=== PATIENT | female | born 1940 | race Caucasian/White ===

== ENCOUNTER 2016-11-24 07:18 | Emergency (ER) | payer MEDICARE ==
[2016-11-24 07:27] VITALS: BP 149/84
--- NOTE | 2016-11-24 07:56 | UC ---
Respiratory Complaint HPI - HPI Summary HPI Summary: 76 yo female with cough x 1 week Initially not productive but over the past few days she has started to bring up phelgm no fever chills myalgias some runny nose - History of Current Complaint Chief Complaint: UCRespiratory Stated Complaint: COUGH CONGESTION Time Seen by Provider: 11/24/16 07:51 Hx Obtained From: Patient Onset/Duration: Gradual Onset Timing: Constant Severity Initially: Mild Severity Currently: Moderate Pain Intensity: 4 Pain Scale Used: 0-10 Numeric Character: Cough: Productive Aggravating Factors: Nothing Alleviating Factors: Nothing Associated Signs And Symptoms: Positive: Chills, Nasal Congestion - Allergies/Home Medications Allergies/Adverse Reactions: Allergies Allergy/AdvReac Type Severity Reaction Status Date / Time No Known Allergies Allergy Verified 07/20/14 06:48 Home Medications: Home Medications Apixaban* [Eliquis*] 5 mg PO 11/24/16 [History] Atenolol TAB* [Tenormin TAB* 50 MG] 50 mg PO DAILY 11/24/16 [History Confirmed 11/24/16] PMH/Surg Hx/FS Hx/Imm Hx Previously Healthy: Yes Endocrine History Of: Reports: Thyroid Disease - HYPOTHYROIDISM Cardiovascular History Of: Reports: Hypertension - WELL CONTROLLED WITH MEDICATION - Surgical History Surgical History: Yes Surgery Procedure, Year, and Place: 6 T&A. 2010 RIGHT CARPAL TUNNEL [facility]. 1960s & [place] [facility] [place] [facility] - Family History Known Family History: Positive: Hypertension - Social History Alcohol Use: None Alcohol Amount: 1-2 GLASSES/WEEK Substance Use Type: None Smoking Status (MU): Never Smoked Tobacco Have You Smoked in the Last Year: No Review of Systems Constitutional: Chills Skin: Negative Eyes: Negative ENT: Nasal Discharge Respiratory: Cough Cardiovascular: Negative Gastrointestinal: Negative Genitourinary: Negative Motor: Negative Neurovascular: Negative Musculoskeletal: Myalgia Neurological: Negative Psychological: Negative All Other Systems Reviewed And Are Negative: Yes Physical Exam Triage Information Reviewed: Yes Appearance: Well-Appearing, No Pain Distress, Well-Nourished Vital Signs: Initial Vital Signs Temp 97 F 11/24/16 07:24 Pulse 76 11/24/16 07:24 Resp 20 11/24/16 07:24 BP 149/84 11/24/16 07:24 Pulse Ox 100 11/24/16 07:24 Eyes: Positive: Conjunctiva Clear ENT: Positive: Hearing grossly normal. Negative: Nasal congestion, Nasal drainage, Trismus, Muffled/hoarse voice Neck: Positive: Supple, Nontender, No Lymphadenopathy Respiratory: Positive: Lungs clear, Normal breath sounds, No respiratory distress, No accessory muscle use Cardiovascular: Positive: RRR, No Murmur Musculoskeletal: Positive: ROM Intact, No Edema Neurological: Positive: Alert Psychological Exam: Normal Skin Exam: Normal UC Diagnostic Evaluation - Laboratory O2 Sat by Pulse Oximetry: 100 - normal/not hypoxic Respiratory Course/Dx - Differential Dx/Diagnosis Provider Diagnoses: acute bronchitis Discharge - Discharge Plan Condition: Stable Disposition: HOME Prescriptions: Azithromycin TAB* [Zithromax TAB*] 250 mg PO DAILY #6 tab Patient Education Materials: Acute Bronchitis (ED) Referrals: Jana Sinclair NP [Primary Care Provider] - 4 Days (if not better)
== END 2016-11-24 08:15 | disposition home or self-care (01) ==
LOC: UCEAST 07:18
DX: J20.9 Acute bronchitis, unspecified (principal); E03.9 Hypothyroidism, unspecified; I10 Essential (primary) hypertension
CPT/HCPCS: 99212; G0463

== ENCOUNTER 2016-11-27 18:13 | Emergency (ER) | payer MEDICARE ==
[2016-11-27 18:31] VITALS: BP 147/82
--- NOTE | 2016-11-27 19:20 | UC ---
Dizzy HPI HPI Summary: 76 yo female seen by me on 11/22 and rxed fro bronchitis her cough is much better the past day or two she has had progressively worsening weakness/dizziness no CP or abd pain or SOB no appetite taking fluids only - History Of Current Complaint Chief Complaint: UCGeneralIllness Stated Complaint: WEAK AND SHAKEY Time Seen by Provider: 11/27/16 18:45 Onset/Duration: Gradual Onset Timing: Constant Severity Initially: Moderate Severity Currently: Moderate Pain Intensity: 0 Pain Scale Used: 0-10 Numeric Character: Dizzy Aggravating Factor(s): Nothing Alleviating Factor(s): Nothing - Allergies/Home Medications Allergies/Adverse Reactions: Allergies Allergy/AdvReac Type Severity Reaction Status Date / Time No Known Allergies Allergy Verified 11/27/16 18:24 PMH/Surg Hx/FS Hx/Imm Hx Previously Healthy: Yes Endocrine History Of: Reports: Thyroid Disease - HYPOTHYROIDISM Cardiovascular History Of: Reports: Cardiac Disorders - A-Fib, Hypertension - WELL CONTROLLED WITH MEDICATION - Surgical History Surgical History: Yes Surgery Procedure, Year, and Place: 1945 T&A. 2010 RIGHT CARPAL TUNNEL [facility]. & RT KNEE SCOPE [facility]. 07/2013 Bilateral CATARACT [facility] - Family History Known Family History: Positive: Hypertension - Social History Alcohol Use: Rare Alcohol Amount: 1-2 GLASS wine q 6 months Substance Use Type: None Smoking Status (MU): Never Smoked Tobacco Have You Smoked in the Last Year: No - Immunization History Most Recent Influenza Vaccination: 06/2016 Most Recent Pneumonia Vaccination: 2014 Review of Systems Constitutional: Fatigue Skin: Negative Eyes: Negative ENT: Negative Respiratory: Negative Cardiovascular: Negative Gastrointestinal: Negative Genitourinary: Negative Motor: Negative Neurovascular: Negative Musculoskeletal: Negative Neurological: Negative Psychological: Negative All Other Systems Reviewed And Are Negative: Yes Physical Exam Triage Information Reviewed: Yes Appearance: Well-Appearing, No Pain Distress, Well-Nourished Vital Signs: Initial Vital Signs Temp 97.5 F 11/27/16 18:26 Pulse 76 11/27/16 18:26 Resp 16 11/27/16 18:26 BP 147/82 11/27/16 18:26 Pulse Ox 100 11/27/16 18:26 Vital Signs Reviewed: Yes Eyes: Positive: Conjunctiva Clear ENT: Positive: Hearing grossly normal. Negative: Pharyngeal erythema, Nasal congestion, Nasal drainage, Trismus, Muffled/hoarse voice Neck: Positive: Supple, Nontender, No Lymphadenopathy Respiratory: Positive: Lungs clear, Normal breath sounds, No respiratory distress Cardiovascular: Positive: No Murmur. Negative: RRR Abdomen Description: Positive: Nontender, No Organomegaly, Soft. Negative: CVA Tenderness (R), CVA Tenderness (L) Musculoskeletal: Positive: Strength Intact, ROM Intact, No Edema Neurological Exam: Normal Neurological: Positive: Alert Psychological Exam: Normal Skin Exam: Normal Dizzy Course/Dx - Differential Dx/Diagnosis Provider Diagnoses: UTI. Dizziness/fatigue/anorexia Discharge - Discharge Plan Condition: Stable Disposition: HOME Prescriptions: Sulfamethox/Trimethoprim DS* [Bactrim DS 800/160 TAB*] 1 tab PO BID #14 tab Patient Education Materials: Urinary Tract Infection in Women (ED), Dizziness ( ED) Referrals: Jana Sinclair NP [Primary Care Provider] - If Needed Additional Instructions: recheck for new or worsening symptoms or if not better in 2-3 days a urine culture is pending
--- NOTE | 2016-11-27 19:46 | RAD ---
Indication: Cough, weakness. 2 views of the chest including dual energy PA views demonstrate no mediastinal shift. Heart is of normal size and configuration. Lungs are clear. Lung awad appear hyperinflated. IMPRESSION: No active cardiopulmonary disease is noted.
[2016-11-27] MEDS ORDERED: Sulfamethox/Trimethoprim DS 800/160* TAB PO ONE (19:57)
== END 2016-11-27 20:09 | disposition home or self-care (01) ==
LOC: UCEAST 18:13
DX: N39.0 Urinary tract infection, site not specified (principal); R42 Dizziness and giddiness; R53.83 Other fatigue; R63.0 Anorexia
CPT/HCPCS: 71020; 81002; 87086; 93005; 99212; A9270-GY; G0463

== ENCOUNTER 2016-11-28 09:01 | Inpatient (IN) | payer MEDICARE ==
--- NOTE | 2016-11-28 10:00 | ED ---
Complex/Multi-Sys Presentation - HPI Summary HPI Summary: Patient presents feeling "blah". She was treated by her PCP for bronchitis a week ago with a Z-eric and then went to [facility] for fatigue yesterday, where she was treated for a UTI. She was started on Bactrim. She is not eating well and has not been drinking either. She had 3 episodes of diarrhea 6 days ago and has had chills without a measured fever. She has lost 9 lbs over the last week. She denies symptoms of CP, SOB, abdominal pain, COVARRUBIAS, fever, swelling or N/T. No N/V/ D. - History Of Current Complaint Chief Complaint: EDWeakness Time Seen by Provider: 11/28/16 09:16 Hx Obtained From: Patient, Family/Data Entry Assistant Onset/Duration: Gradual Onset Timing: Constant Severity Currently: Severe Severity Initially: Mild Associated Signs And Symptoms: Positive: Weakness, Diarrhea, Decreased Oral Intake - Allergies/Home Medications Allergies/Adverse Reactions: Allergies Allergy/AdvReac Type Severity Reaction Status Date / Time No Known Allergies Allergy Verified 11/27/16 18:24 PMH/Surg Hx/FS Hx/Imm Hx Endocrine/Hematology History: Reports: Hx Thyroid Disease - HYPOTHYROIDISM Denies: Hx Sickle Cell Disease Cardiovascular History: Reports: Hx Hypertension - WELL CONTROLLED WITH MEDICATION, Other Cardiovascular Problems/Disorders - HIGH CHOLESTEROL UNDER CONTROL WITH MEDICATION Respiratory History: Denies: Other Respiratory Problems/Disorders GI History: Denies: Other GI Disorders History: Denies: Other Problems/Disorders Musculoskeletal History: Denies: Other Musculoskeletal History Sensory History: Reports: Hx Cataracts - BILATERAL, Hx Contacts or Glasses - GLASSES Denies: Hx Glaucoma, Hx Hearing Aid Opthamlomology History: Reports: Hx Cataracts - BILATERAL, Hx Contacts or Glasses - GLASSES Denies: Hx Glaucoma Neurological History: Denies: Other Neuro Impairments/Disorders - Surgical History Surgery Procedure, Year, and Place: 1945 T&A. 2010 RIGHT CARPAL TUNNEL [facility]. & RT KNEE SCOPE [facility]. 07/2013 Bilateral CATARACT [facility] Hx Anesthesia Reactions: No Infectious Disease History: No Infectious Disease History: Denies: Traveled Outside the [place] in Last 30 Days - Family History Known Family History: Positive: Hypertension - Social History Occupation: Retired Lives: With Family Alcohol Use: Rare Alcohol Amount: 1-2 GLASS wine q 6 months Substance Use Type: Reports: None Hx Tobacco Use: No Smoking Status (MU): Never Smoked Tobacco Have You Smoked in the Last Year: No Review of Systems Positive: Chills, Fatigue. Negative: Fever Positive: Sore Throat. Negative: Ear Ache Negative: Chest Pain Negative: Shortness Of Breath Positive: Diarrhea - 6 days ago x 3. Negative: Abdominal Pain, Vomiting Negative: Myalgia, Edema Negative: Weakness, Paresthesia, Numbness All Other Systems Reviewed And Are Negative: Yes Physical Exam Triage Information Reviewed: Yes Vital Signs On Initial Exam: Initial Vitals Temp Pulse Resp BP Pulse Ox 98.9 F 78 18 125/69 99 11/28/16 09:03 11/28/16 09:03 11/28/16 09:03 11/28/16 09:03 11/28/16 09:03 Vital Signs Reviewed: Yes Appearance: Positive: Well-Appearing, No Pain Distress, Well-Nourished Skin: Positive: Warm, Skin Color Reflects Adequate Perfusion, Dry, Soft Head/Face: Positive: Normal Head/Face Inspection Eyes: Positive: EOMI, GOLDY, Conjunctiva Clear ENT: Positive: Hearing grossly normal Neck: Positive: Supple, Nontender, No Lymphadenopathy Respiratory/Lung Sounds: Positive: Clear to Auscultation, Breath Sounds Present Cardiovascular: Positive: RRR Abdomen Description: Positive: Nontender, Soft. Negative: CVA Tenderness (R), CVA Tenderness (L), Distended, Guarding Bowel Sounds: Positive: Present Musculoskeletal: Negative: Edema Left, Edema Right Neurological: Positive: Sensory/Motor Intact, Alert, Oriented to Person Place, Time, NV Bundle Intact Distally Psychiatric: Positive: Affect/Mood Appropriate AVPU Assessment: Alert Diagnostics - Vital Signs Vital Signs Temp Pulse Resp BP Pulse Ox 11/28/16 09:03 98.9 F 78 18 125/69 99 - Laboratory Result Diagrams: 11/28/16 10:05 11/28/16 10:05 Lab Statement: Any lab studies that have been ordered have been reviewed, and results considered in the medical decision making process. Complex Multi-Symp Course/Dx - Diagnoses Differential Diagnoses/HQI/PQRI: Aspiration, Closed Cranial Trauma, CVA, Metabolic Abnormality Provider Diagnoses: Hypokalemia, Hyponatremia - Physician Notifications Discussed Care Of Patient With: Dr. Lewis, emergency department attending: Dr. Mendes, [facility]. Instructed by Provider To: Admit As Inpatient Discharge - Discharge Plan Condition: Stable Disposition: ADMITTED TO [facility]
[2016-11-28] MEDS: NS 0.9% 1000 ML* 2,000 ML IV ONE ×2 (10:12→10:53)
[2016-11-28 10:27] LABS: Hematocrit 37 % (35-47); Hemoglobin 13.8 g/dl (12.0-16.0); Mean Corpuscular HGB Conc 37 g/dl (31-36); Mean Corpuscular Hemoglobin 33 pg (27-31); Mean Corpuscular Volume 89 fL (80-97); Mean Platelet Volume 8 um3 (7.4-10.4); Red Blood Count 4.18 10^6/ul (4.0-5.4); Red Cell Distribution Width 13 % (10.5-15); White Blood Count 4.1 10^3/ul (3.5-10.8)
[2016-11-28 10:31] LABS: Comments Flag Yes
[2016-11-28 10:43] LABS: BUN/Creatinine Ratio 10.7 (8-20); Calcium 8.8 mg/dL (8.6-10.3); EGFR African American 97.1 (>60); EGFR Non-African American 75.5 (>60); Globulin 2.5 g/dL (2-4); Magnesium 1.2 mg/dL (1.9-2.7); Total Bilirubin 1.8 mg/dL (0.2-1.0); Total Protein 6.5 g/dL (6.4-8.9)
[2016-11-28 10:45] LABS: Troponin I 0.01 ng/mL (<0.04)
[2016-11-28 10:50] LABS: Potassium 2.3 mmol/L (3.5-5.0)
[2016-11-28] MEDS ORDERED: KCL 20 MEQ/100 ML IVPREMIX* 20 MEQ/100 ML BAG IV ONE (10:53)
[2016-11-28] MEDS ORDERED: Magnesium Sulfate 2 GM IV* 2 GM/50 ML BAG IVPB ONE ×2 (10:54→13:01)
[2016-11-28] MEDS ORDERED: Potassium Chlor TAB* 20 MEQ TAB.ER PO ONE (10:54)
[2016-11-28 11:03] LABS: TSH (Thyroid Stimulating Horm) 1.71 mcIU/mL (0.34-5.60)
[2016-11-28] MEDS ORDERED: Magnesium Sulfate 2 GM IV* 0 GM/0 ML BAG ONE (11:22)
[2016-11-28] MEDS ORDERED: Sodium Chloride 3% HYPERTONIC* 500 ML IVPB ONE (11:48)
[2016-11-28 12:15] LABS: Urine Bacteria 1+ (Absent); Urine Bilirubin Negative (Negative); Urine Glucose Negative (Negative); Urine Nitrite Negative (Negative)
[2016-11-28 12:47] LABS: BUN/Creatinine Ratio 11.1 (8-20); Calcium 7.8 mg/dL (8.6-10.3); EGFR African American 118.8 (>60); EGFR Non-African American 92.4 (>60)
[2016-11-28] MEDS ORDERED: NS 0.9% 1000 ML* 1,000 ML IV SCH (13:00)
--- NOTE | 2016-11-28 14:43 | HP ---
HOSPITAL MEDICINE HISTORY AND PHYSICAL: DATE OF ADMISSION: 11/28/16 PRIMARY CARE PHYSICIAN: Jana Sinclair NP ATTENDING PHYSICIAN: Dr. Reggie Mendes* (dictation provided by Keira Alvarado NP) . CHIEF COMPLAINT: Weakness and generalized malaise. HISTORY OF PRESENT ILLNESS: Ms. Madrid is a 76-year-old female with past medical history of hypertension, hyperlipidemia and hypothyroidism, who presents today to the hospital with concern for 2 weeks of malaise and weakness. The patient states that she began to feel unwell about 10 days ago with symptoms that she felt were a cold. She felt cough, chills, and she felt weak. She was seen at [facility] on 11/24/16, at which time she was diagnosed with bronchitis and started on azithromycin. The patient states she completed 4 doses of azithromycin and then returned to [facility] on 11/27/16 when she continued to feel unwell. At that time she continued to have a cough, but her main symptoms were of just feeling "yucky." UA was not able to be obtained due to patient's very poor urine output, but it was suspected that perhaps she had a urinary tract infection and she was started on Bactrim. I will note the patient denies any symptoms of dysuria or frequency. The patient took one dose of Bactrim. Her daughter came to see her this morning and felt that she looked quite poorly and therefore decided to bring her to the emergency room for evaluation. Again, Ms. Madrid's primary symptom is just feeling weak and "washed out." She has no further cough. She states that throughout this illness, she has had a very poor appetite and her daughter notes that she has lost 9 pounds. In the emergency room, Ms. Madrid was found to have hyponatremia with a sodium of 109, her potassium is 2.3, her magnesium is 1.2, her urinalysis shows no evidence of infection. She has no leukocytosis. Her vital signs are stable. Based on Ms. Madrid's presentation with hyponatremia, as well as hypokalemia and magnesemia, suspected related to her acute viral illness, dehydration, hydrochlorothiazide use, and perhaps Bactrim, Hospital Medicine was called regarding admission. PAST MEDICAL HISTORY: 1. Hyperlipidemia. 2. Hypertension. 3. Hypothyroidism. 4. Cataracts. 5. AFib. 6. Varicose vein surgery. 7. Arthroscopy of the right knee. MEDICATIONS: Hydrochlorothiazide 25 mg p.o. daily, lisinopril 15 mg p.o. daily , simvastatin 10 mg p.o. at bedtime, Bactrim 800/160 mg 1 tablet p.o. b.i.d., apixaban 5 mg p.o. b.i.d., atenolol 50 mg p.o. daily, levothyroxine 100 mcg p.o. daily. ALLERGIES: No known drug allergies. FAMILY HISTORY: The patient reports that her father related to a heart attack and mom related to a stroke. Healthcare proxy is the daughter. SOCIAL HISTORY: No alcohol, tobacco or drug use. She lives alone with support from the daughter. REVIEW OF SYSTEMS: A 14-point review of systems was completed with Ms. Madrid and all those not mentioned above are negative. PHYSICAL EXAMINATION VITAL SIGNS: Temperature 98.9, heart rate 78, respiratory rate 18, O2 saturation 99% on room air, blood pressure 125/69. GENERAL: Ms. Madrid is sitting in the bed, she is in no acute distress. NEURO: She is alert and oriented x3. She moves all extremities equally. There is no facial symmetry or focal weakness. Extraocular movements are intact. HEART: S1, S2. No murmur, rub or gallop, and regular. LUNGS: Clear to auscultation bilaterally with no accessory muscle use and good aeration. ABDOMEN: Soft and nontender with bowel sounds positive x4. EXTREMITIES: No cyanosis or edema. SKIN: Intact. LABORATORY DATA: WBC 4.1, hemoglobin 13.8, hematocrit 37, platelet count 243. Sodium 109 at 10:05, on repeat check at 12:09, sodium is now 111. Potassium at 10:05 was 2.3, and now is 3.0. Chloride is 75 at 10 o'clock, BUN 8, creatinine 0.75. Glucose 129, magnesium 1.2, TSH 1.71. WBC 4.1, hemoglobin 13.8, hematocrit 37, platelet count 243. Urine shows no evidence of infection, but does show trace ketones. Group A strep is negative. EKG shows a sinus rhythm with PVCs. ASSESSMENT: Ms. Madrid is a 76-year-old female with a past medical history of hypertension and hyperlipidemia, who presents today to the hospital with generalized fatigue and malaise, has been found to have hyponatremia, hypokalemia, and hypomagnesemia. Based on her presentation with concern for acute viral illness approximately 10 days ago, as well as her use of hydrochlorothiazide and Bactrim, I suspect that she has hypervolemic hyponatremia. Plans are for admission to the hospital for the followin. Hypovolemic hyponatremia. At this point, I do suspect that she is hypovolemic based on her illness, poor appetite, and weight loss, as well as her use of hydrochlorothiazide. The patient has received normal saline in the emergency room at almost 2 L at this point. Her sodium has risen from 109 to 111. Plan to continue with gentle IV fluids with normal saline at 100 mL per hour and recheck in a couple of hours as I would like to watch closely and avoid any rapid correction of the sodium. 2. Hypokalemia, patient has been repleted and the potassium is 3.0. 3. Hypomagnesemia. The patient will receive additional 2 g of magnesium in addition to the 2 g she has received in the ED, and I will check the labs in the morning. 4. Hypertension, plan to hold hydrochlorothiazide and lisinopril but continue with atenolol. 5. AFib. The patient will continue with her Eliquis and atenolol. 6. Hypothyroidism, continue levothyroxine. 7. Hyperlipidemia, continue atorvastatin, a substitute for simvastatin. 8. Code status is DNR and a MOLST form was completed with the patient. 9. Disposition to the medical floor with close observation of sodium through the evening. TIME SPENT: Approximately 60 minutes were spent on the admission of this patient, more than half the time was spent with the patient at the bedside reviewing the events leading up to this hospitalization, performing the physical examination, and reviewing the plan of care. KEIRA ALVARADO NP CC: Jana Sinclair NP* [id number]/[facility] #: [id number] MTDCorine
[2016-11-28 19:29] LABS: BUN/Creatinine Ratio 9.9 (8-20); Calcium 8.3 mg/dL (8.6-10.3); EGFR African American 103.5 (>60); EGFR Non-African American 80.5 (>60)
[2016-11-28 19:36] LABS: Potassium 2.6 mmol/L (3.5-5.0)
[2016-11-28] MEDS: Apixaban* 5 MG TAB PO SCH (20:53)
[2016-11-28] MEDS: KCL 10 MEQ/50 ML IVPREMIX* 10 MEQ/50 ML BAG IV SCH ×3 (20:53→23:32)
[2016-11-28] MEDS: Atorvastatin* 10 MG TAB PO SCH (20:53)
[2016-11-28] MEDS: NS 0.9% 1000 ML* 1,000 ML IV SCH ×2 (20:54→23:36)
[2016-11-29 00:41] LABS: BUN/Creatinine Ratio 9.2 (8-20); Calcium 8.1 mg/dL (8.6-10.3); EGFR African American 95.7 (>60); EGFR Non-African American 74.4 (>60); Potassium 3.4 mmol/L (3.5-5.0)
[2016-11-29] MEDS: NS 0.9% 1000 ML* 1,000 ML IV SCH ×3 (01:25→18:24)
[2016-11-29] MEDS: Levothyroxine TAB* 100 MCG TAB PO SCH (05:54)
[2016-11-29 07:08] LABS: BUN/Creatinine Ratio 8.5 (8-20); Calcium 8.5 mg/dL (8.6-10.3); EGFR African American 87.6 (>60); EGFR Non-African American 68.1 (>60); Potassium 2.8 mmol/L (3.5-5.0)
[2016-11-29] MEDS: Apixaban* 5 MG TAB PO SCH ×2 (10:00→21:43)
[2016-11-29] MEDS: Atenolol TAB* 50 MG PO SCH (10:01)
[2016-11-29] MEDS: Lisinopril TAB* 10 MG PO SCH ×3 (10:51→21:43)
[2016-11-29 12:05] LABS: BUN/Creatinine Ratio 10.3 (8-20); Calcium 8.4 mg/dL (8.6-10.3); EGFR African American 92.8 (>60); EGFR Non-African American 72.2 (>60)
[2016-11-29] MEDS ORDERED: Potassium Chlor TAB* 20 MEQ TAB.ER PO ONE (12:30)
--- NOTE | 2016-11-29 14:53 | PN ---
Subjective Date of Service: 11/29/16 Interval History: Ms. Madrid states that she feels much better. She notes, "what a difference 24 hours can make!" She denies headache, chest pain, SOB, nausea, or abdominal pain. She is tolerating oral intake well. Objective Active Medications: Apixaban (Eliquis*) 5 mg PO BID [facility] Atenolol (Tenormin Tab*) 50 mg PO DAILY [facility] Atorvastatin Calcium (Lipitor*) 5 mg PO BEDTIME [facility] Sodium Chloride (Ns 0.9% 1000 Ml*) 1,000 mls @ 125 mls/hr IV PER RATE [facility] Levothyroxine Sodium (Synthroid Tab*) 100 mcg PO DAILY@0600 [facility] Lisinopril (Prinivil Tab*) 10 mg PO TID [facility] Vital Signs 11/28/16 11/28/16 11/28/16 15:57 16:03 19:19 Temperature 98.2 F Pulse Rate 88 Respiratory 16 16 16 Rate Blood Pressure 117/75 (mmHg) O2 Sat by Pulse 98 Oximetry 11/28/16 11/28/16 11/29/16 20:00 23:37 04:10 Temperature 98.2 F 97.4 F Pulse Rate 64 67 Respiratory 16 16 16 Rate Blood Pressure 126/74 102/64 (mmHg) O2 Sat by Pulse 98 100 Oximetry 11/29/16 11/29/16 11/29/16 08:00 09:41 11:37 Temperature 98.1 F 97.8 F Pulse Rate 89 65 Respiratory 16 16 14 Rate Blood Pressure 115/64 128/78 (mmHg) O2 Sat by Pulse 99 99 Oximetry Oxygen Devices in Use Now: None Appearance: Female sitting up in bed in NAD Respiratory: Symmetrical Chest Expansion and Respiratory Effort, Clear to Auscultation Cardiovascular: NL Sounds; No Murmurs; No JVD, No Edema Abdominal: NL Sounds; No Tenderness; No Distention Extremities: No Edema Skin: No Rash or Ulcers Neurological: Alert and Oriented x 3, NL Muscle Strength and Tone Nutrition: Taking PO's Result Diagrams: 11/28/16 10:05 11/29/16 11:34 Assess/Plan/Problems-Billing Assessment: Ms. Madrid is a 76 yo female with a PMH of hypertension and afib who was admitted on 11/28/16 with hyponatremia, hypokalemia, and hypomagnesemia in setting of recent viral illness secondary to dehydration and HCTZ usage. - Patient Problems (1) Hyponatremia Comment: Na 109 -> 121 with NS since admission. Continue at 125 ml/hr. Recheck this evening and in AM. Suspect secondary to dehydration in setting of acute viral illness, poor oral intake, and HCTZ use. Stop hctz, viral illness resolved. (2) Hypokalemia Comment: K 2.2 -> 3.0 since admission. Continue IV supplementation. (3) Hypomagnesemia Comment: Repleted. (4) Hypertension Comment: BP well controlled. Continue increased dose lisinopril with atenolol. Hold hctz. (5) Afib Comment: Rate controlled. Continue atenolol and eliquis. (6) DNR (do not resuscitate) (7) DVT prophylaxis Comment: Eliquis Status and Disposition: Inpatient with expected LOS > 2 days. Home when medically stable.
[2016-11-29] MEDS: KCL 20 MEQ/100 ML IVPREMIX* 20 MEQ/100 ML BAG IV SCH ×2 (15:39→18:04)
[2016-11-29] MEDS: Atorvastatin* 10 MG TAB PO SCH (21:44)
[2016-11-29 23:14] LABS: BUN/Creatinine Ratio 13.1 (8-20); Calcium 8.4 mg/dL (8.6-10.3); EGFR African American 85.2 (>60); EGFR Non-African American 66.3 (>60); Potassium 4.2 mmol/L (3.5-5.0)
[2016-11-30] MEDS: NS 0.9% 1000 ML* 1,000 ML IV SCH ×3 (00:40→18:23)
[2016-11-30] MEDS: Levothyroxine TAB* 100 MCG TAB PO SCH (06:00)
[2016-11-30 07:13] LABS: BUN/Creatinine Ratio 12.5 (8-20); Calcium 8.3 mg/dL (8.6-10.3); EGFR African American 101.8 (>60); EGFR Non-African American 79.2 (>60); Potassium 3.6 mmol/L (3.5-5.0)
[2016-11-30] MEDS: Atenolol TAB* 50 MG PO SCH (10:22)
[2016-11-30] MEDS: Lisinopril TAB* 10 MG PO SCH ×2 (10:22→21:11)
[2016-11-30] MEDS: Apixaban* 5 MG TAB PO SCH ×2 (10:22→21:12)
--- NOTE | 2016-11-30 10:55 | PN ---
Subjective Date of Service: 11/30/16 Interval History: This is a 76 yo female with HTN, HLD, hypothyroidism, and afib who presented with generalized malaise. She had severe electrolyte abnormalities at admission with Na 109, K 2.2, Mg 1.2. She had a recent viral illness and continued thiazide diuretic use. She has been repleted with IV NS and IV Mg/K. She states that she is overall feeling well this am. Her appetite has returned to normal. Denies abdominal pain, n/v. No headache Objective Active Medications: Apixaban (Eliquis*) 5 mg PO BID [facility] Last Admin: 11/30/16 10:22 Dose: 5 mg Atenolol (Tenormin Tab*) 50 mg PO DAILY [facility] Last Admin: 11/30/16 10:22 Dose: 50 mg Atorvastatin Calcium (Lipitor*) 5 mg PO BEDTIME [facility] Last Admin: 11/29/16 21:44 Dose: 5 mg Sodium Chloride (Ns 0.9% 1000 Ml*) 1,000 mls @ 125 mls/hr IV PER RATE [facility] Last Admin: 11/30/16 09:38 Dose: 125 mls/hr Levothyroxine Sodium (Synthroid Tab*) 100 mcg PO DAILY@0600 [facility] Last Admin: 11/30/16 06:00 Dose: 100 mcg Lisinopril (Prinivil Tab*) 10 mg PO TID [facility] Last Admin: 11/30/16 10:22 Dose: 10 mg Vital Signs: Temp Pulse Resp BP Pulse Ox 97.9 F 66 16 138/71 100 11/30/16 08:38 11/30/16 08:38 11/30/16 08:38 11/30/16 08:38 11/30/16 08:38 Oxygen Devices in Use Now: None Appearance: Well appearing female who appears younger than stated age in NAD. Accompanied by family Neck: NL Appearance and Movements; NL JVP Respiratory: Symmetrical Chest Expansion and Respiratory Effort Cardiovascular: NL Sounds; No Murmurs; No JVD, RRR Abdominal: NL Sounds; No Tenderness; No Distention Extremities: No Edema Skin: No Rash or Ulcers Neurological: Alert and Oriented x 3 Result Diagrams: 11/28/16 10:05 11/30/16 06:10 Assess/Plan/Problems-Billing Assessment: Ms. Madrid is a 76 yo female with a PMH of hypertension and afib who was admitted on 11/28/16 with hyponatremia, hypokalemia, and hypomagnesemia in setting of recent viral illness secondary to dehydration and HCTZ usage. - Patient Problems (1) Hyponatremia Comment: Na has improved to 126 mmol/L today, now asymptomatic Suspect secondary to dehydration in setting of acute viral illness, poor oral intake, and HCTZ use. HCTZ held Plan to repeat BMP later this afternoon and again tomorrow am. (2) Hypokalemia Comment: Resolved Repleted with IV K (3) Hypomagnesemia Comment: Repleted. (4) Afib Comment: Rate controlled. Continue atenolol and eliquis. (5) Hypertension Comment: BP well controlled. Cont lisinopril and atenolol HCTZ held (6) DNR (do not resuscitate) Status and Disposition: Inpatient with expected LOS > 2 days. Anticipate possible discharge tomorrow, would like Na >130 mmol/L
[2016-11-30 12:14] LABS: Magnesium 1.8 mg/dL (1.9-2.7)
[2016-11-30 16:03] LABS: BUN/Creatinine Ratio 12.3 (8-20); Calcium 8.6 mg/dL (8.6-10.3); EGFR African American 100.2 (>60); EGFR Non-African American 77.9 (>60); Potassium 4.1 mmol/L (3.5-5.0)
[2016-11-30] MEDS: Atorvastatin* 10 MG TAB PO SCH (21:11)
[2016-12-01] MEDS: Levothyroxine TAB* 100 MCG TAB PO SCH (05:31)
[2016-12-01 08:32] LABS: Calcium 8.5 mg/dL (8.6-10.3); EGFR African American 100.2 (>60); EGFR Non-African American 77.9 (>60); Magnesium 1.7 mg/dL (1.9-2.7); Potassium 3.4 mmol/L (3.5-5.0)
[2016-12-01] MEDS ORDERED: Potassium Chlor TAB* 20 MEQ TAB.ER PO ONE (08:43)
[2016-12-01 09:00] VITALS: BP 138/60
[2016-12-01] MEDS ORDERED: Magnesium Sulf 4 GM/100 ML IV* 4,000 MG/100 ML BAG IVPB ONE (09:00)
[2016-12-01] MEDS: Lisinopril TAB* 10 MG PO SCH (09:35)
[2016-12-01] MEDS: Atenolol TAB* 50 MG PO SCH (09:36)
[2016-12-01] MEDS: Apixaban* 5 MG TAB PO SCH (09:36)
--- NOTE | 2016-12-01 12:54 | DS ---
DISCHARGE SUMMARY: DATE OF ADMISSION: 11/28/16 DATE OF DISCHARGE: 12/01/16 PRIMARY CARE PROVIDER: PEPE Ho DISCHARGING PROVIDER: CAITIE Lawton SUPERVISING PHYSICIAN: Afua Gómez MD* (DICTATED BY CAITIE LAWTON) PRIMARY DISCHARGE DIAGNOSES: 1. Hyponatremia secondary to hypovolemia and thiazide diuretic use. 2. Hypokalemia. 3. Hypomagnesemia. 4. Acute viral illness, resolved. SECONDARY DISCHARGE DIAGNOSES: 1. Hypertension. 2. Hyperlipidemia. 3. Hypothyroidism. 4. Atrial fibrillation. DISCHARGE MEDICATIONS: 1. Eliquis 5 mg p.o. b.i.d. 2. Atenolol 50 mg p.o. daily. 3. Levothyroxine 100 mcg p.o. daily. 4. Lisinopril 15 mg p.o. twice daily. 5. Simvastatin 10 mg p.o. at bedtime. MEDICATION CHANGES: 1. Discontinue Bactrim. 2. Discontinue hydrochlorothiazide. HOSPITAL IMAGING: EKG shows significant amount of artifact what appears to be atrial fibrillation that is rate controlled with occasional PVCs and no obvious ischemic changes. HOSPITAL COURSE: This is a very pleasant 76-year-old female with a history of chronic atrial fibrillation, anticoagulated with Eliquis as well as hypertension , hyperlipidemia, and hypothyroidism who had been experiencing complaints of weakness and malaise for about 2 weeks prior to her hospital admission. She was treated for presumed bronchitis with azithromycin, but noted really no improvement in her symptoms. She was subsequently treated for presumed urinary tract infection and started on Bactrim. She took just 1 dose of Bactrim prior to her hospitalization. Her symptoms of weakness and malaise continued to progress and she presented to the emergency department for further evaluation. At the time of admission, her sodium was 109 mmol/L, potassium of 2.3 mmol/L, BUN of 8, creatinine 0.75, and magnesium of 1.2. The patient had been continuing her thiazide diuretic throughout her acute illness and her oral intake had been extremely poor for several days prior. The patient was treated for presumed hypovolemic hyponatremia with IV normal saline. Potassium and magnesium were replaced IV as well. The patient's sodium slowly improved. She had no seizure activity and her complaints of malaise and poor appetite improved during her hospital stay. At the time of discharge, the patient's sodium is 131 mmol/L, potassium 3.4, and magnesium 1.7. The patient is going to receive an additional 40 mEq of oral potassium and 4 g of IV magnesium prior to discharge. She states that her energy has improved to back to baseline. She denies any headache or visual changes. No abdominal pain, nausea, or vomiting. DISPOSITION: The patient is being discharged to home. She has a followup appointment with her primary care provider for of this week, which she is encouraged to keep. Recommend repeating basic metabolic panel on Friday prior to her appointment. Her hydrochlorothiazide has been discontinued at this time and can be resumed if appear to be clinically necessary as long as her electrolyte disturbances have resolved completely at the time of repeat evaluation later this week. The patient does not require any additional doses of Bactrim. No signs of acute bacterial infection identified during her hospital stay. CAITIE LAWTON CC: PEPE Ho* [id number]/[facility] #: [id number] TANYA
== END 2016-12-01 13:50 | disposition home or self-care (01) | DRG 641 ==
LOC: ED 09:01 → MED 12:56
PROVIDERS: ADMIT Internal Medicine; ATTEND Internal Medicine
DX: E87.1 Hypo-osmolality and hyponatremia (principal); E86.0 Dehydration; I48.91 Unspecified atrial fibrillation; E83.42 Hypomagnesemia; I10 Essential (primary) hypertension; E03.9 Hypothyroidism, unspecified; E86.1 Hypovolemia; E87.6 Hypokalemia; B34.9 Viral infection, unspecified; E78.5 Hyperlipidemia, unspecified; Z79.01 Long term (current) use of anticoagulants; Z79.899 Other long term (current) drug therapy; Z82.3 Family history of stroke; Z82.49 Family history of ischemic heart disease and other diseases of the circulatory system
CPT/HCPCS: 36415; 71020; 80048; 80053; 81002; 81003; 81015; 83605; 83735; 84443; 84484; 85025; 87086; 87502; 87651; 93005; 99212; A9270-GY; G0463; J3475; J3480

== ENCOUNTER 2016-12-09 11:36 | Day surgery (SDC) | payer MEDICARE ==
[2016-12-09] MEDS ORDERED: Lidocain 1% EPI 1:100,000 * 30 ML MDV ONE (12:32)
[2016-12-09 14:21] VITALS: BP 152/71
--- NOTE | 2016-12-10 04:48 | OP ---
DATE OF OPERATION: 12/09/16 [facility] DATE OF : 44 SURGEON: Reggie Morris MD LITHOGRAPHIC PROOFER: CAITIE Gaston ANESTHESIOLOGIST: None. ANESTHESIA: Local only with 1% lidocaine with epinephrine. PRE-OP DIAGNOSES: 1. Left trigger thumb. 2. Left carpal tunnel syndrome. POST-OP DIAGNOSES: 1. Left trigger thumb. 2. Left carpal tunnel syndrome. OPERATIVE PROCEDURE: 1. Left thumb A1 leslee release. 2. Left open carpal tunnel release. INDICATIONS: Leticia is a 76-year-old woman in whom I had given a steroid injection for the left trigger thumb. It went away initially, but is now coming back and clicking and catching. She also has carpal tunnel syndrome. We talked about risks and benefits and she elected to proceed. ESTIMATED BLOOD LOSS: 10 mL. COMPLICATIONS: None. FINDINGS: As expected. DESCRIPTION OF PROCEDURE: Leticia was seen in the preoperative holding area and the correct side and site were marked. We had a time-out and then I infiltrated the operative area with 1% lidocaine with epinephrine and some bicarbonate. I waited for about 20 minutes and then came back to the operating room where the arm was prepped and dapped in the usual fashion and a time-out was performed. I began by making a transverse laceration to the volar flexion crease over the metacarpophalangeal joint of the left thumb. Dissection was carried down bluntly with a tenotomy scissors. The ulnar and radial digital nerves were identified and retracted with the Ragnell's. I then went ahead and with a tendon sheath completed cleaned out other soft tissue, I longitudinally incised it with a tenotomy scissors. The release was carried out proximally and distally with the tenotomy scissors under direct visualization to avoid any injury to the nerves. I was very satisfied with the release. I had to flex and extend the thumb down and she could not induce any triggering. I then irrigated out the wound and closed the wound with some 5-0 nylon suture. I then turned my attention to the carpal tunnel where a 2 to 3 cm longitudinal incision was made in the standard location for an open carpal tunnel release. Dissection was carried down through this skin, subcutaneous tissue, and palmar fascia with a knife. I then used the tenotomy scissors to create subcutaneous tunnel just ulnar to the palmaris longus tendon prior to opening the transverse carpal ligament. I then released the transverse carpal ligament just off the radial aspect of the hook of the hamate. The release was carried out from distal to proximal. When I got to the level of the volar flexion crease, I inserted the Zoe retractor and retracted the skin and subcutaneous tissue superficially. Under direct visualization, I then released the rest of the transversal carpal ligament and the distal antebrachial fascia to the level of about 4 to 5 cm proximal to the volar wrist flexion crease. I then checked the release proximally and distally. Everything looked good. I then irrigated the wound and closed the skin with some 4- 0 nylon suture. Wounds were then dressed with Xeroform, 4x4, sterile Webril, and an Greg wrap. She was then taken to the recovery room in stable condition. [id number]/[facility] #: [id number] TANYA
== END 2016-12-09 14:12 | disposition home or self-care (01) ==
LOC: OREAST 11:36
PROVIDERS: ATTEND Orthopaedic Surgery Hand Surgery
DX: M65.312 Trigger thumb, left thumb (principal); G56.02 Carpal tunnel syndrome, left upper limb

== ENCOUNTER 2017-10-28 06:44 | Emergency (ER) | payer MEDICARE ==
[2017-10-28 07:47] LABS: ABS Basophils 0 10^3/ul (0-0.2); ABS Eosinophils 0 10^3/ul (0-0.6); ABS Lymphocytes 0.9 10^3/ul (1.0-4.8); ABS Monocytes 0.3 10^3/ul (0-0.8); ABS Neutrophils 3.6 10^3/ul (1.5-7.7); ABS Nucleated RBC 0 10^3/ul; Eosinophil % 0.3 % (0-6); Hematocrit 40 % (35-47); Lymphocyte % 18.5 % (25-47); Mean Corpuscular HGB Conc 35 g/dl (31-36); Mean Corpuscular Hemoglobin 33 pg (27-31); Mean Corpuscular Volume 94 fL (80-97); Mean Platelet Volume 7 um3 (7.4-10.4); Nucleated Red Blood Cells % 0.1; Platelet Count 253 10^3/ul (150-450); Red Blood Count 4.22 10^6/ul (4.0-5.4); Red Cell Distribution Width 15 % (10.5-15); White Blood Count 4.9 10^3/ul (3.5-10.8)
[2017-10-28 08:01] LABS: EGFR Non-African American 69.9 (>60)
--- NOTE | 2017-10-28 08:13 | RAD ---
INDICATION: Weakness. COMPARISON: Comparison is made with prior chest x-ray study from November 27, 2016. TECHNIQUE: A portable view of the chest was obtained. FINDINGS: Cardiac and mediastinal contours appear to be within normal limits. The lungs are underinflated and clear. No pleural effusion is seen. IMPRESSION: NO EVIDENCE FOR ACUTE DISEASE.
[2017-10-28] MEDS ORDERED: NS 0.9% 500 ML* 500 ML IV ONE (08:43)
[2017-10-28 09:59] VITALS: BP 139/63
--- NOTE | 2017-10-29 07:57 | ED ---
Feliberto Kuo Angela, scribed for Alejandro Hill MD on 10/28/17 at 0724 . Complex/Multi-Sys Presentation - HPI Summary HPI Summary: This pt is a 77 y/o female [facility] c/o weakness and feeling shaky upon waking up this morning. Pt additionally notes her knees "felt rubbery." Pt reports that she went to her crop and soil scientist yesterday for a pre-op appointment. She states her crop and soil scientist changed her Atenolol dosage from 50 to 100 mg. Pt started this new dose yesterday afternoon. She notes her symptoms began upon waking up this morning. She denies chest pain, SOB, dizziness, nausea, vomiting , diarrhea. - History Of Current Complaint Chief Complaint: EDGeneral Time Seen by Provider: 10/28/17 07:12 Hx Obtained From: Patient Onset/Duration: Lasting Hours, Still Present Timing: Hours Severity Initially: Moderate Aggravating Factor(s): possible increase of atenolol dosage Alleviating Factor(s): nothing Associated Signs And Symptoms: Positive: Weakness - generalized, Other - POS: feeling shaky, "knees felt rubbery". Negative: Dizziness, SOB, Chest Pain, Nausea, Vomiting, Diarrhea, Fever - Allergies/Home Medications Allergies/Adverse Reactions: Allergies Allergy/AdvReac Type Severity Reaction Status Date / Time Hydrochlorothiazide AdvReac See Comment Verified 10/28/17 06:50 Home Medications: Home Medications Levothyroxine TAB* [Synthroid TAB*] 50 mcg PO .MONTHURS 10/28/17 [History Confirmed 10/28/17] amLODIPine TAB* [Norvasc 5 mg TAB*] 5 mg PO DAILY 10/28/17 [History Confirmed ] PMH/Surg Hx/FS Hx/Imm Hx Endocrine/Hematology History: Reports: Hx Thyroid Disease - HYPOTHYROIDISM Denies: Hx Sickle Cell Disease Cardiovascular History: Reports: Hx Atrial Fibrillation, Hx Hypertension - WELL CONTROLLED WITH MEDICATION, Other Cardiovascular Problems/Disorders - HIGH CHOLESTEROL UNDER CONTROL WITH MEDICATION Respiratory History: Denies: Other Respiratory Problems/Disorders GI History: Denies: Other GI Disorders History: Denies: Other Problems/Disorders Musculoskeletal History: Denies: Other Musculoskeletal History Sensory History: Reports: Hx Cataracts - BILATERAL, Hx Contacts or Glasses Denies: Hx Glaucoma, Hx Hearing Aid Opthamlomology History: Reports: Hx Cataracts - BILATERAL, Hx Contacts or Glasses Denies: Hx Glaucoma Neurological History: Denies: Other Neuro Impairments/Disorders - Surgical History Surgery Procedure, Year, and Place: 1946 T&A. 2011 RIGHT CARPAL TUNNEL [facility]. & 1970s RT KNEE SCOPE [facility]. 07/2013 Bilateral CATARACT [facility] Hx Anesthesia Reactions: No Infectious Disease History: No Infectious Disease History: Denies: Traveled Outside the [place] in Last 30 Days - Family History Known Family History: Positive: Hypertension - Social History Alcohol Use: None Alcohol Amount: 1-2 GLASS wine q 6 months Substance Use Type: Reports: None Hx Tobacco Use: No Smoking Status (MU): Never Smoked Tobacco Have You Smoked in the Last Year: No Review of Systems Negative: Fever, Chills Negative: Chest Pain Negative: Shortness Of Breath Negative: Vomiting, Diarrhea, Nausea Musculoskeletal: Other - "knees felt rubbery" Neurological: Other - POS: feeling shaky. NEG: dizziness Positive: Weakness - generalized All Other Systems Reviewed And Are Negative: Yes Physical Exam - Summary Physical Exam Summary: VITAL SIGNS: Reviewed. GENERAL: Patient is a well-developed and nourished female who is lying comfortable in the stretcher. Patient is not in any acute respiratory distress. HEAD AND FACE: No signs of trauma. No ecchymosis, hematomas or skull depressions. No sinus tenderness. EYES: PERRLA, EOMI x 2, No injected conjunctiva, no nystagmus. EARS: Hearing grossly intact. Ear canals and tympanic membranes are within normal limits. MOUTH: Oropharynx within normal limits. NECK: Supple, trachea is midline, no adenopathy, no JVD, no carotid bruit, no c- spine tenderness, neck with full ROM. CHEST: Symmetric, no tenderness at palpation LUNGS: Clear to auscultation bilaterally. No wheezing or crackles. CVS: Irregular rate and rhythm, S1 and S2 present, no murmurs or gallops appreciated. ABDOMEN: Soft, non-tender. No signs of distention. No rebound no guarding, and no masses palpated. Bowel sounds are normal. EXTREMITIES: FROM in all major joints, no edema, no cyanosis or clubbing. NEURO: Alert and oriented x 3. No acute neurological deficits. Speech is normal and follows commands. SKIN: Dry and warm Triage Information Reviewed: Yes Vital Signs On Initial Exam: Initial Vitals Temp Pulse Resp BP Pulse Ox 98.1 F 81 16 170/77 100 10/28/17 06:45 10/28/17 06:45 10/28/17 06:45 10/28/17 06:45 10/28/17 06:45 Vital Signs Reviewed: Yes Diagnostics - Vital Signs Vital Signs Temp Pulse Resp BP Pulse Ox 10/28/17 06:45 98.1 F 81 16 170/77 100 - Laboratory Lab Results: Lab Results 10/28/17 10/28/17 Range/Units 07:35 07:35 WBC 4.9 (3.5-10.8) 10^3/ul RBC 4.22 (4.0-5.4) 10^6/ul Hgb 14.0 (12.0-16.0) g/dl Hct 40 (35-47) % MCV 94 (80-97) fL MCH 33 H (27-31) pg MCHC 35 (31-36) g/dl RDW 15 (10.5-15) % Plt Count 253 (150-450) 10^3/ul MPV 7 L (7.4-10.4) um3 Neut % (Auto) 75.1 (38-83) % Lymph % (Auto) 18.5 L (25-47) % Crook % (Auto) 5.4 (1-9) % Eos % (Auto) 0.3 (0-6) % Baso % (Auto) 0.7 (0-2) % Absolute Neuts (auto) 3.6 (1.5-7.7) 10^3/ul Absolute Lymphs (auto) 0.9 L (1.0-4.8) 10^3/ul Absolute Monos (auto) 0.3 (0-0.8) 10^3/ul Absolute Eos (auto) 0 (0-0.6) 10^3/ul Absolute Basos (auto) 0 (0-0.2) 10^3/ul Absolute Nucleated RBC 0 10^3/ul Nucleated RBC % 0.1 Sodium 127 L (133-145) mmol/L Potassium 3.7 (3.5-5.0) mmol/L Chloride 95 L (101-111) mmol/L Carbon Dioxide 26 (22-32) mmol/L Anion Gap 6 (2-11) mmol/L BUN 9 (6-24) mg/dL Creatinine 0.80 (0.51-0.95) mg/dL Est GFR ( Amer) 89.9 (>60) Est GFR (Non-Af Amer) 69.9 (>60) BUN/Creatinine Ratio 11.3 (8-20) Glucose 116 H (70-100) mg/dL Calcium 9.8 (8.6-10.3) mg/dL Magnesium 2.0 (1.9-2.7) mg/dL Total Bilirubin 0.90 (0.2-1.0) mg/dL AST 21 (13-39) U/L ALT 10 (7-52) U/L Alkaline Phosphatase 90 (34-104) U/L Troponin I 0.00 (<0.04) ng/mL C-Reactive Protein < 1.00 (< 5.00) mg/L Total Protein 7.2 (6.4-8.9) g/dL Albumin 4.4 (3.2-5.2) g/dL Globulin 2.8 (2-4) g/dL Albumin/Globulin Ratio 1.6 (1-3) TSH 4.18 (0.34-5.60) mcIU/mL Result Diagrams: 10/28/17 07:35 10/28/17 07:35 Lab Statement: Any lab studies that have been ordered have been reviewed, and results considered in the medical decision making process. - Radiology Chest XR Xray Interpretation: No Acute Changes - IMPRESSION: No evidence for acute disease. Dr. Hill has reviewed this radiology report. Radiology Interpretation Completed By: Radiologist - EKG 07:39 Cardiac Rate: NL EKG Rhythm: Atrial Fibrillation - at 86 bpm EKG Comparison: No Significant Change - no change from prior EKG done on . Complex Multi-Symp Course/Dx Course Of Treatment: This pt is a 77 y/o female presenting [place] [facility] c/o weakness and feeling shaky upon waking up this morning. Pt additionally notes her knees "felt rubbery." Pt reports that she went to her crop and soil scientist yesterday for a pre-op appointment. She states her crop and soil scientist changed her Atenolol dosage from 50 to 100 mg. Pt started this new dose yesterday afternoon. She notes her symptoms began upon waking up this morning. She denies chest pain, SOB, dizziness, nausea, vomiting, diarrhea. Test results without any significant abnormalities except for sodium of 127, glucose of 116. The pt had a little bit of orthostatic hypotension. The pt was hydrated and her symptoms resolved. Since the pt does not have any symptoms and is ambulating without dizziness and chest pain, she will be discharged to home with follow up from her PCP. Pt is hemodynamically stable, alert and oriented x3. - Diagnoses Differential Diagnoses/HQI/PQRI: Cardiac Ischemia, Metabolic Abnormality Provider Diagnoses: Weakness, Orthostatic hypotension Discharge - Discharge Plan Condition: Stable Disposition: HOME Patient Education Materials: Weakness (ED) Referrals: Jana Sinclair NP [Primary Care Provider] - Additional Instructions: Please follow up with your primary care provider. RETURN TO THE ED FOR ANY WORSENING SYMPTOMS. The documentation as recorded by the Feliberto diehl Angela accurately reflects the service I personally performed and the decisions made by Sergio brown Walter, MD.
== END 2017-10-28 10:00 | disposition home or self-care (01) ==
LOC: ED 06:44
DX: I95.1 Orthostatic hypotension (principal); R53.1 Weakness; Z86.79 Personal history of other diseases of the circulatory system
CPT/HCPCS: 36415; 71045; 80053; 83735; 84443; 84484; 85025; 86140; 93005; 99283

== ENCOUNTER 2017-10-29 08:19 | Emergency (ER) | payer MEDICARE ==
[2017-10-29] MEDS ORDERED: NS 0.9% 1000 ML* 1,000 ML IV ONE (09:23)
[2017-10-29 09:55] LABS: ABS Basophils 0 10^3/ul (0-0.2); ABS Eosinophils 0 10^3/ul (0-0.6); ABS Lymphocytes 1.2 10^3/ul (1.0-4.8); ABS Monocytes 0.4 10^3/ul (0-0.8); ABS Neutrophils 4.6 10^3/ul (1.5-7.7); ABS Nucleated RBC 0 10^3/ul; Eosinophil % 0.2 % (0-6); Hematocrit 40 % (35-47); Hemoglobin 14.1 g/dl (12.0-16.0); Lymphocyte % 18.8 % (25-47); Mean Corpuscular HGB Conc 35 g/dl (31-36); Mean Corpuscular Hemoglobin 33 pg (27-31); Mean Corpuscular Volume 93 fL (80-97); Mean Platelet Volume 7 um3 (7.4-10.4); Nucleated Red Blood Cells % 0; Platelet Count 283 10^3/ul (150-450); Red Cell Distribution Width 15 % (10.5-15); White Blood Count 6.3 10^3/ul (3.5-10.8)
[2017-10-29 10:44] LABS: Urine Appearance Clear; Urine Blood 2+ (Negative); Urine Color Colorless; Urine Ketones Negative (Negative); Urine Protein Negative (Negative); Urine Specific Gravity 1.002 (1.010-1.030); Urine Urobilinogen Negative (Negative)
[2017-10-29 11:16] LABS: EGFR Non-African American 80.3 (>60)
[2017-10-29 12:12] VITALS: BP 139/68
--- NOTE | 2017-11-09 14:16 | ED ---
Shannan Kuo Jason, scribed for Jose Luis Branch MD on 10/29/17 at 1119 . Complex/Multi-Sys Presentation - HPI Summary HPI Summary: This patient is a 77 year old F presenting to [facility] with a chief complaint of fatigue since 3 day ago. The patient states that she feels fatigued and weak. She includes that two days ago she started a higher dose of atenolol at 100 mg a day. She was seen in the ED yesterday and was verbally told she was dehydrated ; she was ordered to receive IV fluids but did not receive them as a nurse did not fulfill the order. The patient states that her symptoms are not positional. The patient rates the pain 0/10 in severity. Symptoms aggravated by exertion. Symptoms alleviated by nothing. Patient denies chest pain, chest tightness, pressure or heaviness, SOB, N/V/D, and speech difficulties. Additionally, the Pt reports that she had a tick within the past few months that was embedded in her eyelid and subsequently removed with tweezers. She states that she did not receive treatment and did not experience joint issues or rashes. - History Of Current Complaint Chief Complaint: EDWeakness Time Seen by Provider: 10/29/17 08:36 Hx Obtained From: Patient Onset/Duration: Gradual Onset, Lasting Days - Since 3 days ago, Still Present Aggravating Factor(s): exertion Associated Signs And Symptoms: Positive: Weakness, Other - fatigue. Patient denies chest pain, chest tightness, pressure or heaviness, SOB, N/V/D, and speech difficulties. - Allergies/Home Medications Allergies/Adverse Reactions: Allergies Allergy/AdvReac Type Severity Reaction Status Date / Time MS Hydrochlorothiazide AdvReac See Comment Verified 11/02/17 15:17 [Hydrochlorothiazide] PMH/Surg Hx/FS Hx/Imm Hx Previously Healthy: No Endocrine/Hematology History: Reports: Hx Thyroid Disease - HYPOTHYROIDISM Denies: Hx Sickle Cell Disease Cardiovascular History: Reports: Hx Atrial Fibrillation, Hx Hypertension - WELL CONTROLLED WITH MEDICATION, Other Cardiovascular Problems/Disorders - HIGH CHOLESTEROL UNDER CONTROL WITH MEDICATION Respiratory History: Denies: Other Respiratory Problems/Disorders GI History: Denies: Other GI Disorders History: Denies: Other Problems/Disorders Musculoskeletal History: Denies: Other Musculoskeletal History Sensory History: Reports: Hx Cataracts - BILATERAL, Hx Contacts or Glasses Denies: Hx Glaucoma, Hx Hearing Aid Opthamlomology History: Reports: Hx Cataracts - BILATERAL, Hx Contacts or Glasses Denies: Hx Glaucoma Neurological History: Denies: Other Neuro Impairments/Disorders - Surgical History Surgery Procedure, Year, and Place: 1946 T&A. 2010 RIGHT CARPAL TUNNEL [facility]. & 1970s RT KNEE SCOPE [facility]. 07/2013 Bilateral CATARACT [facility] Hx Anesthesia Reactions: No Infectious Disease History: No Infectious Disease History: Denies: Traveled Outside the [place] in Last 30 Days - Family History Known Family History: Positive: Hypertension Negative: Blood Disorder - Social History Occupation: Retired Alcohol Use: None Alcohol Amount: 1-2 GLASS wine q 6 months Substance Use Type: Reports: None Hx Tobacco Use: No Smoking Status (MU): Never Smoked Tobacco Have You Smoked in the Last Year: No Review of Systems Positive: Fatigue. Negative: Fever Positive: Weakness All Other Systems Reviewed And Are Negative: Yes Physical Exam - Summary Physical Exam Summary: Constitutional: Well-developed, Well-nourished, Alert. (-) Distressed Skin: Warm, Dry HENT: Normocephalic; Atraumatic Eyes: Conjunctiva normal Neck: Musculoskeletal ROM normal neck. (-) JVD, (-) Stridor, (-) Tracheal deviation Cardio: Rhythm regular, rate normal, Heart sounds normal; Intact distal pulses; The pedal pulses are 2+ and symmetric. Radial pulses are 2+ and symmetric. (-) Murmur Pulmonary/Chest wall: Effort normal. (-) Respiratory distress, (-) Wheezes, (-) Rales Abd: Soft, (-) Tenderness, (-) Distension, (-) Guarding, (-) Rebound Musculoskeletal: (-) Edema Lymph: (-) Cervical adenopathy Neuro: Alert, Oriented x3 Psych: Mood and affect Normal Triage Information Reviewed: Yes Vital Signs On Initial Exam: Initial Vitals Temp Pulse Resp BP Pulse Ox 98.3 F 45 16 166/81 100 10/29/17 08:26 10/29/17 08:26 10/29/17 08:26 10/29/17 08:26 10/29/17 08:26 Vital Signs Reviewed: Yes Diagnostics - Vital Signs Vital Signs Temp Pulse Resp BP Pulse Ox 10/29/17 08:46 79 13 99 10/29/17 08:26 98.3 F 45 16 166/81 100 - Laboratory Lab Results: Lab Results 10/29/17 10/29/17 10/29/17 Range/Units 09:33 09:33 09:33 WBC 6.3 (3.5-10.8) 10^3/ul RBC 4.30 (4.0-5.4) 10^6/ul Hgb 14.1 (12.0-16.0) g/dl Hct 40 (35-47) % MCV 93 (80-97) fL MCH 33 H (27-31) pg MCHC 35 (31-36) g/dl RDW 15 (10.5-15) % Plt Count 283 (150-450) 10^3/ul MPV 7 L (7.4-10.4) um3 Neut % (Auto) 74.0 (38-83) % Lymph % (Auto) 18.8 L (25-47) % [place] % (Auto) 6.5 (1-9) % Eos % (Auto) 0.2 (0-6) % Baso % (Auto) 0.5 (0-2) % Absolute Neuts (auto) 4.6 (1.5-7.7) 10^3/ul Absolute Lymphs (auto) 1.2 (1.0-4.8) 10^3/ul Absolute Monos (auto) 0.4 (0-0.8) 10^3/ul Absolute Eos (auto) 0 (0-0.6) 10^3/ul Absolute Basos (auto) 0 (0-0.2) 10^3/ul Absolute Nucleated RBC 0 10^3/ul Nucleated RBC % 0 Sodium 124 L (133-145) mmol/L Potassium 3.9 (3.5-5.0) mmol/L Chloride 91 L (101-111) mmol/L Carbon Dioxide 26 (22-32) mmol/L Anion Gap 7 (2-11) mmol/L BUN 6 (6-24) mg/dL Creatinine 0.71 (0.51-0.95) mg/dL Est GFR ( Amer) 103.2 (>60) Est GFR (Non-Af Amer) 80.3 (>60) BUN/Creatinine Ratio 8.5 (8-20) Glucose 110 H (70-100) mg/dL Lactic Acid 1.5 (0.5-2.0) mmol/L Calcium 9.7 (8.6-10.3) mg/dL Magnesium 1.9 (1.9-2.7) mg/dL Total Bilirubin 0.90 (0.2-1.0) mg/dL AST 27 (13-39) U/L ALT 16 (7-52) U/L Alkaline Phosphatase 82 (34-104) U/L Troponin I 0.00 (<0.04) ng/mL Total Protein 6.9 (6.4-8.9) g/dL Albumin 4.3 (3.2-5.2) g/dL Globulin 2.6 (2-4) g/dL Albumin/Globulin Ratio 1.7 (1-3) TSH 3.67 (0.34-5.60) mcIU/mL Urine Color Urine Appearance Urine pH (5-9) Ur Specific [place] (1.010-1.030) Urine Protein (Negative) Urine Ketones (Negative) Urine Blood (Negative) Urine Nitrate (Negative) Urine Bilirubin (Negative) Urine Urobilinogen (Negative) Ur Leukocyte Esterase (Negative) Urine WBC (Auto) (Absent) Urine RBC (Auto) (Absent) Urine Bacteria (Absent) Urine Glucose (Negative) Lyme Disease Serology (Negative) 10/29/17 10/29/17 Range/Units 09:33 09:52 WBC (3.5-10.8) 10^3/ul RBC (4.0-5.4) 10^6/ul Hgb (12.0-16.0) g/dl Hct (35-47) % MCV (80-97) fL MCH (27-31) pg MCHC (31-36) g/dl RDW (10.5-15) % Plt Count (150-450) 10^3/ul MPV (7.4-10.4) um3 Neut % (Auto) (38-83) % Lymph % (Auto) (25-47) % [place] % (Auto) (1-9) % Eos % (Auto) (0-6) % Baso % (Auto) (0-2) % Absolute Neuts (auto) (1.5-7.7) 10^3/ul Absolute Lymphs (auto) (1.0-4.8) 10^3/ul Absolute Monos (auto) (0-0.8) 10^3/ul Absolute Eos (auto) (0-0.6) 10^3/ul Absolute Basos (auto) (0-0.2) 10^3/ul Absolute Nucleated RBC 10^3/ul Nucleated RBC % Sodium (133-145) mmol/L Potassium (3.5-5.0) mmol/L Chloride (101-111) mmol/L Carbon Dioxide (22-32) mmol/L Anion Gap (2-11) mmol/L BUN (6-24) mg/dL Creatinine (0.51-0.95) mg/dL Est GFR ( Amer) (>60) Est GFR (Non-Af Amer) (>60) BUN/Creatinine Ratio (8-20) Glucose (70-100) mg/dL Lactic Acid (0.5-2.0) mmol/L Calcium (8.6-10.3) mg/dL Magnesium (1.9-2.7) mg/dL Total Bilirubin (0.2-1.0) mg/dL AST (13-39) U/L ALT (7-52) U/L Alkaline Phosphatase (34-104) U/L Troponin I (<0.04) ng/mL Total Protein (6.4-8.9) g/dL Albumin (3.2-5.2) g/dL Globulin (2-4) g/dL Albumin/Globulin Ratio (1-3) TSH (0.34-5.60) mcIU/mL Urine Color Colorless Urine Appearance Clear Urine pH 8.0 (5-9) Ur Specific [place] 1.002 L (1.010-1.030) Urine Protein Negative (Negative) Urine Ketones Negative (Negative) Urine Blood 2+ H (Negative) Urine Nitrate Negative (Negative) Urine Bilirubin Negative (Negative) Urine Urobilinogen Negative (Negative) Ur Leukocyte Esterase Negative (Negative) Urine WBC (Auto) Absent (Absent) Urine RBC (Auto) Trace(0-2/hpf) (Absent) Urine Bacteria Absent (Absent) Urine Glucose Negative (Negative) Lyme Disease Serology Negative (Negative) Result Diagrams: 10/29/17 09:33 10/29/17 09:33 Lab Statement: Any lab studies that have been ordered have been reviewed, and results considered in the medical decision making process. - EKG 0932 Cardiac Rate: NL EKG Rhythm: Sinus Rhythm - [address] Segment: Normal Ectopy: PVCs - occasional Complex Multi-Symp Course/Dx Course Of Treatment: This patient is a 77 year old F presenting to [facility] with a chief complaint of fatigue since 3 day ago. The patient states that she feels fatigued and weak. She includes that two days ago she started a higher dose of atenolol at 100 mg a day. She was seen in the ED yesterday and was verbally told she was dehydrated; she was ordered to receive IV fluids but did not receive them as a nurse did not fulfill the order. The patient states that her symptoms are not positional. The patient rates the pain 0/10 in severity. Symptoms aggravated by exertion. Symptoms alleviated by nothing. Patient denies chest pain, chest tightness, pressure or heaviness, SOB, N/V/D, and speech difficulties. Additionally, the Pt reports that she had a tick within the past few months that was embedded in her eyelid and subsequently removed with tweezers. She states that she did not receive treatment and did not experience joint issues or rashes. Assessment/Plan: In the ED course the patient was given IV fluids and lab workup. An EKG reveals shows Normal Sinus Rhythm at 98 bpm with occasional PVCs. At this time there is no suspicion for stroke or OR. - Diagnoses Differential Diagnoses/HQI/PQRI: Urinary Tract Infection, Other - Viral Illness , Medication adverse effect from increased beta vikas. Provider Diagnoses: Dehydration, Generalized weakness Discharge - Discharge Plan Condition: Fair Disposition: OTHER Discharge Disposition Comment: Patient is signed out to Dr. Valdovinos, awaiting lab results. Patient Education Materials: Dehydration (ED) Referrals: Jana Sinclair NP [Primary Care Provider] - 1 Day Additional Instructions: RETURN TO THE EMERGENCY DEPARTMENT FOR CHANGING OR WORSENING SYMPTOMS The documentation as recorded by the Shannan diehl Jason accurately reflects the service I personally performed and the decisions made by me, Jose Luis Branch MD.
== END 2017-10-29 12:12 ==
LOC: ED 08:19
DX: E86.0 Dehydration (principal); R53.1 Weakness; Z88.8 Allergy status to other drugs, medicaments and biological substances
CPT/HCPCS: 36415; 80053; 81003; 81015; 83605; 83735; 84443; 84484; 85025; 86618; 93005; 99282

== ENCOUNTER 2017-11-02 15:12 | Emergency (ER) | payer MEDICARE ==
[2017-11-02 17:11] LABS: ABS Basophils 0 10^3/ul (0-0.2); ABS Eosinophils 0 10^3/ul (0-0.6); ABS Lymphocytes 1.4 10^3/ul (1.0-4.8); ABS Monocytes 0.5 10^3/ul (0-0.8); ABS Neutrophils 4.4 10^3/ul (1.5-7.7); ABS Nucleated RBC 0 10^3/ul; Eosinophil % 0.3 % (0-6); Hematocrit 37 % (35-47); Hemoglobin 12.9 g/dl (12.0-16.0); Lymphocyte % 21.8 % (25-47); Mean Corpuscular HGB Conc 35 g/dl (31-36); Mean Corpuscular Hemoglobin 33 pg (27-31); Mean Corpuscular Volume 95 fL (80-97); Mean Platelet Volume 7 um3 (7.4-10.4); Nucleated Red Blood Cells % 0.1; Platelet Count 254 10^3/ul (150-450); Red Cell Distribution Width 15 % (10.5-15); White Blood Count 6.3 10^3/ul (3.5-10.8)
[2017-11-02 17:23] LABS: EGFR Non-African American 76.5 (>60)
[2017-11-02 18:58] VITALS: BP 140/82
[2017-11-02 19:15] LABS: Urine Appearance Clear; Urine Blood 2+ (Negative); Urine Color Straw; Urine Ketones Negative (Negative); Urine Protein Negative (Negative); Urine Specific Gravity 1.004 (1.010-1.030); Urine Urobilinogen Negative (Negative)
--- NOTE | 2017-11-03 17:41 | ED ---
Evelyn Kuo Edward, scribed for Alejandro Hill MD on 11/02/17 at 1630 . Complex/Multi-Sys Presentation - HPI Summary HPI Summary: 77 y/o female presents to the ED c/o intermittent weakness for around 1 week. She also c/o shakiness. Pt states she "feels terrible". She states that these feelings are temporarily reprieved when she hydrates herself, but that they quickly resurface. Pt lives alone. Pt was seen at her PCP two days ago; they found that her sodium was low. PMHx AFIB. Denies other symptoms at this time. - History Of Current Complaint Chief Complaint: EDWeakness Time Seen by Provider: 11/02/17 16:15 Hx Obtained From: Patient Onset/Duration: Lasting Days, Still Present Timing: Intermittent, Lasting: Associated Signs And Symptoms: Positive: Weakness, Other - shakiness - Allergies/Home Medications Allergies/Adverse Reactions: Allergies Allergy/AdvReac Type Severity Reaction Status Date / Time Hydrochlorothiazide AdvReac See Comment Verified 11/02/17 15:17 PMH/Surg Hx/FS Hx/Imm Hx Previously Healthy: No Endocrine/Hematology History: Reports: Hx Thyroid Disease - HYPOTHYROIDISM Denies: Hx Sickle Cell Disease Cardiovascular History: Reports: Hx Atrial Fibrillation, Hx Hypertension - WELL CONTROLLED WITH MEDICATION, Other Cardiovascular Problems/Disorders - HIGH CHOLESTEROL UNDER CONTROL WITH MEDICATION Respiratory History: Denies: Other Respiratory Problems/Disorders GI History: Denies: Other GI Disorders History: Denies: Other Problems/Disorders Musculoskeletal History: Denies: Other Musculoskeletal History Sensory History: Reports: Hx Cataracts - BILATERAL, Hx Contacts or Glasses Denies: Hx Glaucoma, Hx Hearing Aid Opthamlomology History: Reports: Hx Cataracts - BILATERAL, Hx Contacts or Glasses Denies: Hx Glaucoma Neurological History: Denies: Other Neuro Impairments/Disorders - Surgical History Surgery Procedure, Year, and Place: 6 T&A. 2010 RIGHT CARPAL TUNNEL [facility]. & RT KNEE SCOPE [facility]. 07/2013 Bilateral CATARACT [facility] Hx Anesthesia Reactions: No Infectious Disease History: No Infectious Disease History: Denies: Traveled Outside the [place] in Last 30 Days - Family History Known Family History: Positive: Hypertension - Social History Alcohol Use: None Alcohol Amount: 1-2 GLASS wine q 6 months Hx Substance Use: No Substance Use Type: Reports: None Hx Tobacco Use: No Smoking Status (MU): Never Smoked Tobacco Have You Smoked in the Last Year: No Review of Systems Constitutional: Negative Eyes: Negative ENT: Negative Cardiovascular: Negative Respiratory: Negative Gastrointestinal: Negative Genitourinary: Negative Musculoskeletal: Negative Skin: Negative Neurological: Other - shakiness Positive: Weakness - general Psychological: Normal All Other Systems Reviewed And Are Negative: Yes Physical Exam - Summary Physical Exam Summary: VITAL SIGNS: Reviewed. GENERAL: Patient is a well-developed and nourished female who is lying comfortable in the stretcher. Patient is not in any acute respiratory distress. HEAD AND FACE: No signs of trauma. No ecchymosis, hematomas or skull depressions. No sinus tenderness. EYES: PERRLA, EOMI x 2, No injected conjunctiva, no nystagmus. EARS: Hearing grossly intact. Ear canals and tympanic membranes are within normal limits. MOUTH: Oropharynx within normal limits. NECK: Supple, trachea is midline, no adenopathy, no JVD, no carotid bruit, no c- spine tenderness, neck with full ROM. CHEST: Symmetric, no tenderness at palpation LUNGS: Clear to auscultation bilaterally. No wheezing or crackles. CVS: Regular rate and rhythm, S1 and S2 present, no murmurs or gallops appreciated. ABDOMEN: Soft, non-tender. No signs of distention. No rebound no guarding, and no masses palpated. Bowel sounds are normal. EXTREMITIES: FROM in all major joints, no edema, no cyanosis or clubbing. NEURO: Alert and oriented x 3. No acute neurological deficits. Speech is normal and follows commands. SKIN: Dry and warm Triage Information Reviewed: Yes Vital Signs On Initial Exam: Initial Vitals Temp Pulse Resp BP Pulse Ox 98.5 F 74 16 164/77 100 11/02/17 15:17 11/02/17 15:17 11/02/17 15:17 11/02/17 15:17 11/02/17 15:17 Vital Signs Reviewed: Yes Diagnostics - Vital Signs Vital Signs Temp Pulse Resp BP Pulse Ox 11/02/17 15:17 98.5 F 74 16 164/77 100 - Laboratory Lab Results: Lab Results 11/02/17 11/02/17 11/02/17 Range/Units 17:00 17:00 17:00 WBC 6.3 (3.5-10.8) 10^3/ul RBC 3.90 L (4.0-5.4) 10^6/ul Hgb 12.9 (12.0-16.0) g/dl Hct 37 (35-47) % MCV 95 (80-97) fL MCH 33 H (27-31) pg MCHC 35 (31-36) g/dl RDW 15 (10.5-15) % Plt Count 254 (150-450) 10^3/ul MPV 7 L (7.4-10.4) um3 Neut % (Auto) 69.8 (38-83) % Lymph % (Auto) 21.8 L (25-47) % [place] % (Auto) 7.6 (1-9) % Eos % (Auto) 0.3 (0-6) % Baso % (Auto) 0.5 (0-2) % Absolute Neuts (auto) 4.4 (1.5-7.7) 10^3/ul Absolute Lymphs (auto) 1.4 (1.0-4.8) 10^3/ul Absolute Monos (auto) 0.5 (0-0.8) 10^3/ul Absolute Eos (auto) 0 (0-0.6) 10^3/ul Absolute Basos (auto) 0 (0-0.2) 10^3/ul Absolute Nucleated RBC 0 10^3/ul Nucleated RBC % 0.1 Sodium 130 L (133-145) mmol/L Potassium 3.6 (3.5-5.0) mmol/L Chloride 98 L (101-111) mmol/L Carbon Dioxide 26 (22-32) mmol/L Anion Gap 6 (2-11) mmol/L BUN 7 (6-24) mg/dL Creatinine 0.74 (0.51-0.95) mg/dL Est GFR ( Amer) 98.4 (>60) Est GFR (Non-Af Amer) 76.5 (>60) BUN/Creatinine Ratio 9.5 (8-20) Glucose 103 H (70-100) mg/dL Lactic Acid 1.1 (0.5-2.0) mmol/L Calcium 9.2 (8.6-10.3) mg/dL Magnesium 2.4 (1.9-2.7) mg/dL Total Bilirubin 0.70 (0.2-1.0) mg/dL AST 17 (13-39) U/L ALT 12 (7-52) U/L Alkaline Phosphatase 77 (34-104) U/L Lactate Dehydrogenase 146 (140-271) U/L Total Creatine Kinase 56 (10-223) U/L Troponin I 0.00 (<0.04) ng/mL Total Protein 6.6 (6.4-8.9) g/dL Albumin 4.2 (3.2-5.2) g/dL Globulin 2.4 (2-4) g/dL Albumin/Globulin Ratio 1.8 (1-3) TSH 3.88 (0.34-5.60) mcIU/mL Urine Color Urine Appearance Urine pH (5-9) Ur Specific [place] (1.010-1.030) Urine Protein (Negative) Urine Ketones (Negative) Urine Blood (Negative) Urine Nitrate (Negative) Urine Bilirubin (Negative) Urine Urobilinogen (Negative) Ur Leukocyte Esterase (Negative) Urine WBC (Auto) (Absent) Urine RBC (Auto) (Absent) Urine Bacteria (Absent) Urine Glucose (Negative) Hepatitis A IgM Ab (Nonreactive) Hep Bs Antigen (Nonreactive) Hep B Core IgM Ab (Nonreactive) Hepatitis C Antibody (Nonreactive) Influenza A (Rapid) (Negative) Influenza B (Rapid) (Negative) 11/02/17 11/02/17 11/02/17 Range/Units 17:00 17:12 18:48 WBC (3.5-10.8) 10^3/ul RBC (4.0-5.4) 10^6/ul Hgb (12.0-16.0) g/dl Hct (35-47) % MCV (80-97) fL MCH (27-31) pg MCHC (31-36) g/dl RDW (10.5-15) % Plt Count (150-450) 10^3/ul MPV (7.4-10.4) um3 Neut % (Auto) (38-83) % Lymph % (Auto) (25-47) % [place] % (Auto) (1-9) % Eos % (Auto) (0-6) % Baso % (Auto) (0-2) % Absolute Neuts (auto) (1.5-7.7) 10^3/ul Absolute Lymphs (auto) (1.0-4.8) 10^3/ul Absolute Monos (auto) (0-0.8) 10^3/ul Absolute Eos (auto) (0-0.6) 10^3/ul Absolute Basos (auto) (0-0.2) 10^3/ul Absolute Nucleated RBC 10^3/ul Nucleated RBC % Sodium (133-145) mmol/L Potassium (3.5-5.0) mmol/L Chloride (101-111) mmol/L Carbon Dioxide (22-32) mmol/L Anion Gap (2-11) mmol/L BUN (6-24) mg/dL Creatinine (0.51-0.95) mg/dL Est GFR ( Amer) (>60) Est GFR (Non-Af Amer) (>60) BUN/Creatinine Ratio (8-20) Glucose (70-100) mg/dL Lactic Acid (0.5-2.0) mmol/L Calcium (8.6-10.3) mg/dL Magnesium (1.9-2.7) mg/dL Total Bilirubin (0.2-1.0) mg/dL AST (13-39) U/L ALT (7-52) U/L Alkaline Phosphatase (34-104) U/L Lactate Dehydrogenase (140-271) U/L Total Creatine Kinase (10-223) U/L Troponin I (<0.04) ng/mL Total Protein (6.4-8.9) g/dL Albumin (3.2-5.2) g/dL Globulin (2-4) g/dL Albumin/Globulin Ratio (1-3) TSH (0.34-5.60) mcIU/mL Urine Color Straw Urine Appearance Clear Urine pH 7.0 (5-9) Ur Specific [place] 1.004 L (1.010-1.030) Urine Protein Negative (Negative) Urine Ketones Negative (Negative) Urine Blood 2+ H (Negative) Urine Nitrate Negative (Negative) Urine Bilirubin Negative (Negative) Urine Urobilinogen Negative (Negative) Ur Leukocyte Esterase Trace H (Negative) Urine WBC (Auto) Trace(0-5/hpf) (Absent) Urine RBC (Auto) Trace(0-2/hpf) (Absent) Urine Bacteria Absent (Absent) Urine Glucose Negative (Negative) Hepatitis A IgM Ab Nonreactive (Nonreactive) Hep Bs Antigen Nonreactive (Nonreactive) Hep B Core IgM Ab Nonreactive (Nonreactive) Hepatitis C Antibody Nonreactive (Nonreactive) Influenza A (Rapid) Negative (Negative) Influenza B (Rapid) Negative (Negative) Result Diagrams: 11/02/17 17:00 11/02/17 17:00 Lab Statement: Any lab studies that have been ordered have been reviewed, and results considered in the medical decision making process. Complex Multi-Symp Course/Dx Assessment/Plan: 77 y/o female presents to the ED c/o intermittent weakness for around 1 week. She also c/o shakiness. Pt states she "feels terrible". She states that these feelings are temporarily reprieved when she hydrates herself, but that they quickly resurface. Pt lives alone. Pt was seen at her PCP two days ago; they found that her sodium was low. PMHx AFIB. Denies other symptoms at this time. Test results are without significant abnormalities. Pt had an XR and UA which showed no abnormalities or infection. Pt has intermittent weakness and at this point the pt is sx free. I sent tests for aldolase, CPK, LDH, MISHA to see if she has muscular dysfunction. The pt will f/u w/ PCP since they were sent out by them. She has an appt with PCP and was strongly advised to f/u with them. At this point the pt was ambulating and drinking and eating with no difficulty. The pt will be d/c home with f/u with PCP. - Diagnoses Provider Diagnoses: Weakness Discharge - Discharge Plan Condition: Stable Disposition: HOME Patient Education Materials: Weakness (ED) Referrals: Jana Sinclair NP [Primary Care Provider] - 4 Days (PLEASE F/U IN 3-5 DAYS) The documentation as recorded by the Evelyn diehl Edward accurately reflects the service I personally performed and the decisions made by me, Alejandro Hill MD.
[2017-11-04 14:32] LABS: Sm (Smith) IgG Antibody <0.2 U
== END 2017-11-02 18:58 | disposition home or self-care (01) ==
LOC: ED 15:12
DX: R53.1 Weakness (principal); I48.91 Unspecified atrial fibrillation
CPT/HCPCS: 36415; 80053; 80074; 81003; 81015; 82085; 82550; 83605; 83615; 83735; 84443; 84484; 85025; 86038; 86235; 86255; 87086; 87502; 99282

== ENCOUNTER 2019-01-21 11:49 | Emergency (ER) | payer MEDICARE ==
[2019-01-21 12:19] VITALS: BP 153/85
--- NOTE | 2019-01-21 12:32 | UC ---
Ear Complaint HPI - HPI Summary HPI Summary: 78 yo female presents with left ear pain for the last 3 days. She tells me that she has had a runny nose and "cold" symptoms for the last week that seem to be improving, but over the last 3 days she has noticed some left pain. She reports that the pain is worse with opening and closing her jaw. Has not been taking anything OTC for her symptoms. Denies fever, chills, sore throat, cough, dizziness. - History of Current Complaint Chief Complaint: UCEar Stated Complaint: EAR PAIN Time Seen by Provider: 01/21/19 12:31 Hx Obtained From: Patient Onset/Duration: Gradual Onset Severity Initially: Moderate Severity Currently: Moderate Pain Intensity: 7 Pain Scale Used: 0-10 Numeric - Allergies/Home Medications Allergies/Adverse Reactions: Allergies Allergy/AdvReac Type Severity Reaction Status Date / Time hydrochlorothiazide Allergy may drop Verified 01/21/19 12:21 K+, NA, and mag to drop MS Hydrochlorothiazide AdvReac See Comment Verified 11/02/17 15:17 [Hydrochlorothiazide] Home Medications: Home Medications Spironolactone 12.5 mg PO DAILY 01/21/19 [History Confirmed 01/21/19] PMH/Surg Hx/FS Hx/Imm Hx Endocrine History: Hypothyroidism Cardiovascular History: Cardiac Disease, Hypertension - Surgical History Surgical History: Yes Surgery Procedure, Year, and Place: 1946 T&A. 2011 RIGHT CARPAL TUNNEL [facility]. & RT KNEE SCOPE [facility]. 07/2013 Bilateral CATARACT [facility] - Family History Known Family History: Positive: Hypertension - Social History Occupation: Retired Alcohol Use: None Alcohol Amount: 1-2 GLASS wine q 6 months Substance Use Type: None Smoking Status (MU): Never Smoked Tobacco Have You Smoked in the Last Year: No - Immunization History Most Recent Influenza Vaccination: 06/2016 Most Recent Tetanus Shot: unknown Most Recent Pneumonia Vaccination: 2014 Review of Systems All Other Systems Reviewed And Are Negative: Yes Constitutional: Positive: Negative Skin: Positive: Negative Eyes: Positive: Negative ENT: Positive: Ear Ache, Nasal Discharge Respiratory: Positive: Negative Cardiovascular: Positive: Negative Neurological: Positive: Negative Psychological: Positive: Negative Physical Exam - Summary Physical Exam Summary: GENERAL: NAD. WDWN. No pain distress. SKIN: No rashes, sores, lesions, or open wounds. HEENT: Head: AT/NC. Mild TTP at left TMJ worse with opening and closing jaw. Eyes: EOM intact. Conjunctiva clear without inflammation or discharge. Ears: Hearing grossly normal. LEFT TM with mild erythema and bulging. No canal edema or drainage. Nose: Nasal mucosa pink and moist. NTTP maxillary and frontal sinus. Throat: Posterior oropharynx without exudates, erythema, or tonsillar enlargement. Uvula midline. NECK: Supple. Nontender. No lymphadenopathy. CHEST: CTAB. No r/r/w. No accessory muscle use. Breathing comfortably and in no distress. CV: Pulses intact. NEURO: Alert. PSYCH: Age appropriate behavior. Triage Information Reviewed: Yes Vital Signs: Initial Vital Signs Temp 98 F 01/21/19 12:16 Pulse 100 01/21/19 12:16 Resp 20 01/21/19 12:16 BP 153/85 01/21/19 12:16 Pulse Ox 100 01/21/19 12:16 Vital Signs Reviewed: Yes Ear Complaint Course/Dx - Course Course Of Treatment: Left otitis media with possible TMJ pain vs radiating pain from ear. Will rx for amoxicillin and have her f/u if symptoms do not improve - Differential Dx/Diagnosis Provider Diagnosis: Left otitis media Discharge - Sign-Out/Discharge Documenting (check all that apply): Patient Departure All imaging exams completed and their final reports reviewed: No Studies - Discharge Plan Condition: Stable Disposition: HOME Prescriptions: Amoxicillin PO (*) [Amoxicillin 500 MG CAP*] 500 mg PO Q12H #14 cap Patient Education Materials: Ear Infection (ED), Temporomandibular Disorder (ED ) Referrals: Jana Sinclair NP [Primary Care Provider] - Additional Instructions: If you develop a fever, shortness of breath, chest pain, new or worsening symptoms - please call your PCP or go to the ED. - Billing Disposition and Condition Condition: STABLE Disposition: Home
== END 2019-01-21 12:51 | disposition home or self-care (01) ==
LOC: UCEAST 11:49
DX: H66.92 Otitis media, unspecified, left ear (principal); J34.89 Other specified disorders of nose and nasal sinuses; E03.9 Hypothyroidism, unspecified; I11.9 Hypertensive heart disease without heart failure; Z88.8 Allergy status to other drugs, medicaments and biological substances
CPT/HCPCS: 99212; G0463

== ENCOUNTER 2019-06-06 03:26 | Emergency (ER) | payer MEDICARE ==
--- NOTE | 2019-06-06 04:10 | ED ---
Dizziness - HPI Summary HPI Summary: Pt is a 79 y/o F presenting to the ED with a chief complaint of weakness. She states that her PCP thought she had a UTI, but the cultures came back negative. She currently reports frequent urination, incontinence, fatigue, weakness, and slight rhinorrhea. She denies cough, sore throat, SOB, N/V/D, abd pain, rash, or fever. - History Of Current Complaint Chief Complaint: EDWeakness Stated Complaint: DONT FEEL GOOD PER PT Time Seen by Provider: 06/06/19 03:55 Hx Obtained From: Patient Onset/Duration: Still Present, Gradually Timing: Constant Severity Initially: Moderate Severity Currently: Moderate Character: Weak Aggravating Factor(s): Nothing Alleviating Factor(s): Nothing Associated Signs And Symptoms: Negative: Nausea, Vomiting, Diarrhea, SOB, Fever - Allergies/Home Medications Allergies/Adverse Reactions: Allergies Allergy/AdvReac Type Severity Reaction Status Date / Time hydrochlorothiazide Allergy may cause Verified 06/06/19 04:25 K+, NA, and mag to drop PMH/Surg Hx/FS Hx/Imm Hx Previously Healthy: Yes Endocrine/Hematology History: Reports: Hx Thyroid Disease - HYPOTHYROIDISM Denies: Hx Sickle Cell Disease Cardiovascular History: Reports: Hx Atrial Fibrillation, Hx Hypertension - WELL CONTROLLED WITH MEDICATION, Other Cardiovascular Problems/Disorders - HIGH CHOLESTEROL UNDER CONTROL WITH MEDICATION Respiratory History: Denies: Other Respiratory Problems/Disorders GI History: Denies: Other GI Disorders History: Denies: Other Problems/Disorders Musculoskeletal History: Denies: Other Musculoskeletal History Sensory History: Reports: Hx Cataracts - BILATERAL, Hx Contacts or Glasses Denies: Hx Glaucoma, Hx Hearing Aid Opthamlomology History: Reports: Hx Cataracts - BILATERAL, Hx Contacts or Glasses Denies: Hx Glaucoma Neurological History: Denies: Other Neuro Impairments/Disorders - Surgical History Surgery Procedure, Year, and Place: 1945 T&A. 2010 RIGHT CARPAL TUNNEL [facility]. & RT KNEE SCOPE [facility]. 07/2013 Bilateral CATARACT [facility] Hx Anesthesia Reactions: No - Immunization History Date of Influenza Vaccine: 06/2017 Infectious Disease History: No Infectious Disease History: Denies: Traveled Outside the [place] in Last 30 Days - Family History Known Family History: Positive: Hypertension - Social History Alcohol Use: None Alcohol Amount: 1-2 GLASS wine q 6 months Hx Substance Use: No Substance Use Type: Reports: None Hx Tobacco Use: No Smoking Status (MU): Never Smoked Tobacco Have You Smoked in the Last Year: No Review of Systems Positive: Fatigue. Negative: Fever Positive: Nasal Discharge. Negative: Sore Throat Negative: Shortness Of Breath, Cough Negative: Abdominal Pain, Vomiting, Diarrhea, Nausea Positive: frequency, incontinence Negative: Rash Positive: Weakness All Other Systems Reviewed And Are Negative: Yes Physical Exam - Summary Physical Exam Summary: Appearance: Well-appearing, Well-nourished, lying in bed comfortably Skin: Warm, dry, no obvious rash Eyes: sclera anicteric, no conjunctival pallor ENT: mucous membranes moist, pharynx appears normal Neck: Supple, nontender Respiratory: Clear to auscultation, no signs of respiratory distress Cardiovascular: Tachycardic. No murmurs. Normal distal pulses in tibial and radial bilaterally. Abdomen: Soft, nontender, normal active bowel sounds present Musculoskeletal: Normal, Strength/ROM Intact Neurological: A&Ox3, awake and alert, mentation is normal, speech is fluent and appropriate Psychiatric: affect is normal, does not appear anxious or depressed Triage Information Reviewed: Yes Vital Signs On Initial Exam: Initial Vitals Temp Pulse Resp BP Pulse Ox 99.9 F 112 16 106/79 97 06/06/19 03:28 06/06/19 03:28 06/06/19 03:28 06/06/19 03:28 06/06/19 03:28 Vital Signs Reviewed: Yes Diagnostics - Vital Signs Vital Signs Temp Pulse Resp BP Pulse Ox 06/06/19 03:53 105 148/82 99 06/06/19 03:52 99 98 06/06/19 03:28 99.9 F 112 16 106/79 97 - Laboratory Result Diagrams: 06/06/19 04:25 06/06/19 04:25 Lab Statement: Any lab studies that have been ordered have been reviewed, and results considered in the medical decision making process. - Radiology CXR Radiology Interpretation Completed By: ED Physician Summary of Radiographic Findings: No acute process, pending official radiology report. - EKG 0411 Cardiac Rate: Other Rate - 91bpm afib EKG Rhythm: Atrial Fibrillation ST Segment: Normal Ectopy: None Summary of EKG Findings: EKG at 0411 shows atrial fibrillation at 91bpm with ventricular bigeminy. Dizzy Course/Dx - Course Course Of Treatment: Pt is a 79 y/o F presenting to the ED with a chief complaint of weakness. She states that her PCP thought she had a UTI, but the cultures came back negative. She currently reports frequent urination, incontinence, fatigue, weakness, and slight rhinorrhea. She denies cough, sore throat, SOB, N/V/D, abd pain, rash, or fever. Pt's physical exam is nml. EKG at 0411 shows atrial fibrillation at 91bpm with ventricular bigeminy. Pts hematology shows WBC of 12.9, MCH of 34, and MPV of 6.6. Her chemistry shows Sodium of 129, Chloride of 93, Magnesium of 1.7, total Bilirubin of 1.10, and Lactic Acid of 2.5. Her urine shows 1+ protein, 2+ blood, 1+ leukocyte esterase , 2+ WBC, 3+ RBC, and present hyaline casts. CXR shows no acute process, pending official radiology report. She will be signed out to Dr. Chance at 0700 on 06/06/[address] urogram. - Diagnoses Provider Diagnoses: Weakness Discharge ED - Sign-Out/Discharge Documenting (check all that apply): Sign-Out Patient Signing out patient TO: Tyler Chance Patient Received Moderate/Deep Sedation with Procedure: No - Discharge Plan Condition: Stable Disposition: HOME Patient Education Materials: Weakness (ED) Referrals: Jana Sinclair NP [Primary Care Provider] - 2 Days Additional Instructions: PLEASE FOLLOW UP WITH YOUR PRIMARY CARE PROVIDER IN 2-3 DAYS AND RETURN TO THE EMERGENCY DEPARTMENT FOR ANY NEW OR WORSENING SYMPTOMS. - Billing Disposition and Condition Condition: STABLE Disposition: Home - Attestation Statements Document Initiated by Cliff: Yes Documenting Scribe: Jolie Caraballo Provider For Whom Cliff is Documenting (Include Credential): Tyler Tirado MD. Scribe Attestation: Jolie Kuo scribed for Tyler Tirado MD. on 06/07/19 at 0531. Scribe Documentation Reviewed: Yes Provider Attestation: The documentation as recorded by the Jolie diehl accurately reflects the service I personally performed and the decisions made by me, Tyler Tirado MD. Status of Scribe Document: Viewed
[2019-06-06 04:32] LABS: ABS Lymphocytes 0.2 10^3/ul (1.0-4.8); ABS Monocytes 0.4 10^3/ul (0-0.8); ABS Neutrophils 12.3 10^3/ul (1.5-7.7); Eosinophil % 0.2 %; Hematocrit 44 % (35-47); Hemoglobin 15.3 g/dL (12.0-16.0); Lymphocyte % 1.5 %; Mean Corpuscular HGB Conc 35 g/dL (31-36); Mean Corpuscular Hemoglobin 34 pg (27-31); Mean Corpuscular Volume 96 fL (80-97); Mean Platelet Volume 6.6 fL (7.4-10.4); Platelet Count 241 10^3/uL (150-450); Red Blood Count 4.56 10^6 /uL (3.70-4.87); Red Cell Distribution Width 14 % (10-15); White Blood Count 12.9 10^3/uL (3.5-10.8)
[2019-06-06 04:33] LABS: Urine Appearance Clear; Urine Bacteria Absent (Absent); Urine Bilirubin Negative (Negative); Urine Blood 2+ (Negative); Urine Color Yellow; Urine Glucose Negative (Negative); Urine Ketones Negative (Negative); Urine Nitrite Negative (Negative); Urine Protein 1+(30 mg/dL) (Negative); Urine Red Blood Cell 3+(>10/hpf) (Absent); Urine Urobilinogen Negative (Negative); Urine White Blood Cell 2+(11-20/hpf) (Absent)
[2019-06-06 04:48] LABS: Albumin 4.5 g/dL (3.2-5.2); Albumin/Globulin Ratio 1.8 (1-3); BUN/Creatinine Ratio 13.8 (8-20); C Reactive Protein 5.93 mg/L (<8.01); Calcium 9.9 mg/dL (8.6-10.3); EGFR African American 84.2 (>60); EGFR Non-African American 69.6 (>60); Globulin 2.5 g/dL (2-4); Magnesium 1.7 mg/dL (1.9-2.7); Potassium 4.4 mmol/L (3.5-5.0); Total Bilirubin 1.1 mg/dL (0.2-1.0)
[2019-06-06 05:45] LABS: TSH (Thyroid Stimulating Horm) 2.15 mcIU/mL (0.34-5.60)
[2019-06-06] MEDS ORDERED: Iohexol 300* (CONTRAST) 10 ML SDV IV ONE (07:13)
--- NOTE | 2019-06-06 07:15 | ED ---
Progress - Progress Note Progress Note: This pt is a sign out to Dr. Chance from Dr. Tirado at shift change 0700 06/06/[address] urogram and dispo. - Results/Orders Results/Orders: Her CT Urogram shows the following: No obstructive uropathy is noted. There is a right renal cyst noted. Ureters and urinary bladder demonstrates no focal wall thickening or filling defects. Likely liver cysts are also noted. ED physician has reviewed this report. Her CXR shows the following results: No active cardiopulmonary disease is noted. ED physician has reviewed this report. Course/Dx - Course Course Of Treatment: This pt is a sign out to Dr. Chance from Dr. Tirado at shift change 0700 06/06/[address] urogram and dispo. Her labs came back with a mildly elevated lactic acid and she got a liter of fluid for that. She did feel better after that and her CT scan was normal. Her urine was equivocal and I recommended antibiotics. She has filled a prescription for 7 days of 500 mg twice a day Cipro and has this medication at home. I recommended she use that and she agreed. Culture results will be available in a couple days and she has no appointment on Friday with Jana Sinclair. - Diagnoses Provider Diagnoses: Weakness Discharge ED - Sign-Out/Discharge Documenting (check all that apply): Patient Departure - dsicharge Patient Received Moderate/Deep Sedation with Procedure: No - Discharge Plan Condition: Stable Disposition: HOME Patient Education Materials: Weakness (ED) Referrals: Jana Sinclair, ALTO SINGER [Primary Care Provider] - 2 Days Additional Instructions: PLEASE FOLLOW UP WITH YOUR PRIMARY CARE PROVIDER IN 2-3 DAYS AND RETURN TO THE EMERGENCY DEPARTMENT FOR ANY NEW OR WORSENING SYMPTOMS. - Billing Disposition and Condition Condition: STABLE Disposition: Home - Attestation Statements Document Initiated by Cliff: Yes Documenting Scribe: Nirmal Luong Provider For Whom Cliff is Documenting (Include Credential): Tyler Chance MD Scribe Attestation: Nirmal Kuo, scrkonged for Tyler Chance MD on 06/06/19 at 1124. Scribe Documentation Reviewed: Yes Provider Attestation: The documentation as recorded by the Nirmal dihel accurately reflects the service I personally performed and the decisions made by , Tyler Chance MD Status of Scribe Document: Viewed
[2019-06-06] MEDS ORDERED: NS 0.9% 1000 ML** 1,000 ML IV ONE (08:10)
[2019-06-06 11:06] VITALS: BP 120/74
== END 2019-06-06 11:05 | disposition home or self-care (01) ==
LOC: ED 03:26
DX: R53.1 Weakness (principal); R53.83 Other fatigue; I10 Essential (primary) hypertension; I48.91 Unspecified atrial fibrillation
CPT/HCPCS: 36415; 71046; 74178; 76377; 80053; 81003; 81015; 83605; 83735; 84443; 84484; 85025; 86140; 87086; 93005; 96360; 96361; 99283; Q9967

== ENCOUNTER 2019-11-25 17:12 | Emergency (ER) | payer MEDICARE ==
[2019-11-25 18:24] LABS: ABS Basophils 0.1 10^3/ul (0-0.2); ABS Lymphocytes 1.3 10^3/ul (1.0-4.8); ABS Monocytes 0.5 10^3/ul (0-0.8); ABS Neutrophils 4.5 10^3/ul (1.5-7.7); Eosinophil % 0.2 %; Hematocrit 41 % (35-47); Hemoglobin 14.5 g/dL (12.0-16.0); Lymphocyte % 20.1 %; Mean Corpuscular HGB Conc 35 g/dL (31-36); Mean Corpuscular Hemoglobin 33 pg (27-31); Mean Corpuscular Volume 95 fL (80-97); Mean Platelet Volume 7.4 fL (7.4-10.4); Platelet Count 263 10^3/uL (150-450); Red Blood Count 4.37 10^6 /uL (3.70-4.87); Red Cell Distribution Width 13 % (10-15); White Blood Count 6.4 10^3/uL (3.5-10.8)
--- NOTE | 2019-11-25 18:25 | ED ---
Complex/Multi-Sys Presentation - HPI Summary HPI Summary: Patient is a 79 y/o F presenting to the ED for a chief complaint of fatigue. Patient also notes malaise, a feeling of being tremulous, intermittent unsteadiness with ambulation, abdominal discomfort, lower back pain, and urinary urgency. Patient denies fever, urinary burning, headache, or flank pain. No aggravating or alleviating factors are reported. Patient endorses similar symptoms in the past with a UTI. PMHx is significant for UTI and atrial fibrillation. - History Of Current Complaint Chief Complaint: EDGeneral Time Seen by Provider: 11/25/19 17:52 Hx Obtained From: Patient Onset/Duration: Sudden Onset, Still Present Timing: Constant Severity Currently: Moderate Severity Initially: Moderate Associated Signs And Symptoms: Positive: Abdominal Pain - Discomfort, Back Pain - Lower. Negative: Headache, Fever - Allergies/Home Medications Allergies/Adverse Reactions: Allergies Allergy/AdvReac Type Severity Reaction Status Date / Time hydrochlorothiazide Allergy may cause Verified 11/25/19 17:16 K+, NA, and mag to drop Home Medications: Home Medications Apixaban* [Eliquis*] 5 mg PO BID 11/24/16 [History Confirmed 11/25/19] lisinopriL [Lisinopril] 20 mg PO BID 06/06/19 [History Confirmed 11/25/19] Atenolol TAB* [Tenormin TAB* 25 MG] 25 mg PO BID 11/25/19 [History Confirmed ] Cephalexin CAP* [Keflex CAP*] 500 mg PO BID 5 Days #10 cap 11/25/19 [Rx] Levothyroxine TAB* [Synthroid TAB*] 100 mcg PO DAILY 11/25/19 [History Confirmed 11/25/19] Rosuvastatin (NF) [Crestor (NF)] 5 mg PO DAILY 11/25/19 [History Confirmed 11/25] amLODIPine TAB* [Norvasc 5 mg TAB*] 10 mg PO DAILY 11/25/19 [History Confirmed 11/25/19] PMH/Surg Hx/FS Hx/Imm Hx Previously Healthy: Yes Endocrine/Hematology History: Reports: Hx Thyroid Disease - HYPOTHYROIDISM Denies: Hx Diabetes, Hx Sickle Cell Disease Cardiovascular History: Reports: Hx Atrial Fibrillation, Hx Hypertension - WELL CONTROLLED WITH MEDICATION, Other Cardiovascular Problems/Disorders - HIGH CHOLESTEROL UNDER CONTROL WITH MEDICATION Respiratory History: Denies: Other Respiratory Problems/Disorders GI History: Reports: Other GI Disorders - UTI History: Denies: Hx Renal Disease, Other Problems/Disorders Musculoskeletal History: Denies: Other Musculoskeletal History Sensory History: Reports: Hx Cataracts - BILATERAL, Hx Contacts or Glasses Denies: Hx Glaucoma, Hx Legally Blind, Hx Deafness, Hx Hearing Aid Opthamlomology History: Reports: Hx Cataracts - BILATERAL, Hx Contacts or Glasses Denies: Hx Glaucoma, Hx Legally Blind EENT History: Denies: Hx Deafness Neurological History: Denies: Other Neuro Impairments/Disorders - Surgical History Surgical History: Yes Surgery Procedure, Year, and Place: 1945 T&A. 2010 RIGHT CARPAL TUNNEL [facility]. & RT KNEE SCOPE [facility]. 07/2013 Bilateral CATARACT [facility] Hx Anesthesia Reactions: No - Immunization History Date of Influenza Vaccine: 06/2017 Infectious Disease History: No Infectious Disease History: Denies: Traveled Outside the [place] in Last 30 Days - Family History Known Family History: Positive: Hypertension - Social History Occupation: Retired Alcohol Use: Rare Alcohol Amount: 1-2 GLASS wine q 6 months Hx Substance Use: No Substance Use Type: Reports: None Hx Tobacco Use: No Smoking Status (MU): Never Smoked Tobacco Have You Smoked in the Last Year: No Review of Systems Positive: Fatigue, Other - Positive malaise. Negative: Fever Positive: Abdominal Pain - Discomfort Positive: urgency - Urinary. Negative: burning - Urinary, flank pain Positive: Myalgia - Lower back Neurological/Mental Status: Other - Positive tremulous and unsteadiness with ambulation Negative: Headache All Other Systems Reviewed And Are Negative: Yes Physical Exam - Summary Physical Exam Summary: Constitutional: Well-developed, Well-nourished, Alert. (-) Distressed Skin: Warm, Dry HENT: Normocephalic; Atraumatic Eyes: Conjunctiva normal Neck: Musculoskeletal ROM normal neck. (-) JVD, (-) Stridor, (-) Nuchal rigidity Cardio: Rhythm regular, rate normal, Heart sounds normal; Intact distal pulses; Radial pulses are 2+ and symmetric. (-) Murmur Pulmonary/Chest wall: Effort normal. (-) Respiratory distress, (-) Wheezes, (-) Rales Abd: Soft, (-) tenderness, (-) Distension, (-) Guarding, (-) Rebound Musculoskeletal: 2+ non-pitting edema of the lower extremities. TTP L spine Lymph: (-) Cervical adenopathy Neuro: Alert, Oriented x3, CN 2-12 grossly intact. No dysmetria, ambulates w steady gait Psych: Mood and affect Normal Triage Information Reviewed: Yes Vital Signs On Initial Exam: Initial Vitals Temp Pulse Resp BP Pulse Ox 98.3 F 91 18 161/99 99 11/25/19 17:14 11/25/19 17:14 11/25/19 17:14 11/25/19 17:14 11/25/19 17:14 Vital Signs Reviewed: Yes Procedures - Sedation Patient Received Moderate/Deep Sedation with Procedure: No Diagnostics - Vital Signs Vital Signs Temp Pulse Resp BP Pulse Ox 11/25/19 17:14 98.3 F 91 18 161/99 99 - Laboratory Result Diagrams: 11/25/19 18:13 11/25/19 18:13 Lab Statement: Any lab studies that have been ordered have been reviewed, and results considered in the medical decision making process. - Radiology Lumbar Spine X-Ray Radiology Interpretation Completed By: ED Physician Summary of Radiographic Findings: No acute processes. Pending offical review. Re-Evaluation - Re-Evaluation First Eval Re-Evaluation Time: 19:33 Change: Improved Comment: Family and pt told of labratory results which are consistent with a UTI. Second Eval Re-Evaluation Time: 19:53 Change: Improved Comment: Able to ambulate w steady gate. Will be discharged home. Complex Multi-Symp Course/Dx Course Of Treatment: 79 y/o F p/w fatigue, dysuria, lower back pain. - VSS NAD. PE well appearing, NAD. Midline L spine tenderness. No trauma. XR w/o fracture. Daughter state she gets the unsteadiness w UTI's. Normal neuro exam. Labs w no leukocytosis, UA with 3+ LE, placed on keflex. Culture sent. - Diagnoses Provider Diagnoses: UTI (urinary tract infection), Back pain Discharge ED - Sign-Out/Discharge Documenting (check all that apply): Patient Departure - discharge - Discharge Plan Condition: Stable Disposition: HOME Prescriptions: Cephalexin CAP* [Keflex CAP*] 500 mg PO BID 5 Days #10 cap Patient Education Materials: Urinary Tract Infection in Older Adults (ED) Referrals: Jana Sinclair NP [Primary Care Provider] - Additional Instructions: You were seen in the emergency department for lower abdominal pain, urinary symptoms. You have a urinary tract infection. Please take Keflex 4 times a day. Take 1 dose in the morning before you rock picker her prescription. Please follow up with your primary care doctor in next 2-3 days and return to emergency department for fevers, confusion, lower abdominal pain, back pain, worsening or concerning symptoms. It was a pleasure taking care of you today. - Billing Disposition and Condition Condition: STABLE Disposition: Home - Attestation Statements Document Initiated by Cliff: Yes Documenting Scribe: Nirmal Oliveira Provider For Whom Cliff is Documenting (Include Credential): Arthur Duran MD Scribe Attestation: I, Nirmal Oliveira, scribed for Arthur Duran MD on 11/26/19 at 1420. Scribe Documentation Reviewed: Yes Provider Attestation: The documentation as recorded by the scribeMachelle Marco DiSanto accurately reflects the service I personally performed and the decisions made by , Arthur Duran MD Status of Scribe Document: Viewed
[2019-11-25 18:40] LABS: Albumin 4.6 g/dL (3.2-5.2); Albumin/Globulin Ratio 1.8 (1-3); Calcium 9.5 mg/dL (8.6-10.3); EGFR African American 60.2 (>60); EGFR Non-African American 49.7 (>60); Globulin 2.5 g/dL (2-4); Potassium 3.7 mmol/L (3.5-5.0); Total Bilirubin 0.6 mg/dL (0.2-1.0); Total Protein 7.1 g/dL (6.4-8.9)
[2019-11-25 18:51] LABS: Urine Appearance Cloudy; Urine Bilirubin Negative (Negative); Urine Blood 1+ (Negative); Urine Color Yellow; Urine Glucose Negative (Negative); Urine Ketones Negative (Negative); Urine Nitrite Negative (Negative); Urine Protein Negative (Negative); Urine Specific Gravity 1.013 (1.010-1.030); Urine Urobilinogen Negative (Negative)
[2019-11-25] MEDS ORDERED: Cephalexin CAP* 500 MG PO ONE ×3 (19:15→19:53)
[2019-11-25 19:16] LABS: Urine Bacteria Absent (Absent); Urine Red Blood Cell 2+(6-10/hpf) (Absent); Urine Squamous Epithelial Cell Present (Absent); Urine White Blood Cell Trace(0-5/hpf) (Absent)
[2019-11-25 20:26] VITALS: BP 158/84
== END 2019-11-25 20:25 | disposition home or self-care (01) ==
LOC: ED 17:12
DX: N39.0 Urinary tract infection, site not specified (principal); Z87.440 Personal history of urinary (tract) infections; M54.5 Low back pain; M51.36 Other intervertebral disc degeneration, lumbar region; R60.0 Localized edema; E03.9 Hypothyroidism, unspecified; I10 Essential (primary) hypertension; E78.00 Pure hypercholesterolemia, unspecified; I48.91 Unspecified atrial fibrillation; Z79.01 Long term (current) use of anticoagulants; Z79.899 Other long term (current) drug therapy; Z88.8 Allergy status to other drugs, medicaments and biological substances
CPT/HCPCS: 36415; 72100; 80053; 81003; 81015; 83690; 83880; 85025; 87077; 87086; 87186; 99283; A9270-GY

== ENCOUNTER 2019-12-01 17:30 | Emergency (ER) | payer MEDICARE ==
--- NOTE | 2019-12-01 19:36 | ED ---
Influenza-Like Illness - HPI Summary HPI Summary: Patient complains of lower bilateral back pain, decreased energy, fatigue x 1 week. Evaluated for same symptoms one week ago, diagnosed with UTI and started on Keflex. has taken antibiotics with some improvement. Took last Keflex this morning. Symptoms seemed to worsen again today. Denies trauma, fever, cough, sore throat, CP, SOB, N/3/D, abdominal pain, change in BM. Medical history is HTN, A. fib, UTI. - History of Current Complaint Chief Complaint: EDBackInjuryPain Time Seen by Provider: 12/01/19 19:24 Hx Obtained From: Patient Onset/Duration: Gradual Onset, Lasting Days Severity: Moderate Associated Signs & Symptoms: Negative - Allergy/Home Medications Allergies/Adverse Reactions: Allergies Allergy/AdvReac Type Severity Reaction Status Date / Time hydrochlorothiazide Allergy may cause Verified 12/04/19 05:09 K+, NA, and mag to drop Home Medications: Home Medications Apixaban* [Eliquis*] 5 mg PO BID 11/24/16 [History Confirmed 12/04/19] Atenolol TAB* [Tenormin TAB* 25 MG] 25 mg PO BID 11/25/19 [History Confirmed ] Levothyroxine TAB* [Synthroid TAB*] 100 mcg PO DAILY 11/25/19 [History Confirmed 12/04/19] Rosuvastatin (NF) [Crestor (NF)] 5 mg PO DAILY 11/25/19 [History Confirmed ] amLODIPine TAB* [Norvasc 5 mg TAB*] 10 mg PO DAILY 11/25/19 [History Confirmed 12/04/19] Lisinopril TAB* [Prinivil TAB*] 20 mg PO BID 12/01/19 [History Confirmed ] Nitrofurantoin Monohyd/M-Cryst [Macrobid 100 mg Capsule] 100 mg PO BID 12/04/19 [History Confirmed 12/04/19] Sulfamethox/Trimethoprim DS* [Bactrim DS 800/160 TAB*] 1 tab PO BID 14 Days #28 tab 12/04/19 [Rx] PMH/Surg Hx/FS Hx/Imm Hx Endocrine/Hematology History: Reports: Hx Thyroid Disease - HYPOTHYROIDISM Denies: Hx Diabetes, Hx Sickle Cell Disease Cardiovascular History: Reports: Hx Atrial Fibrillation, Hx Hypertension - WELL CONTROLLED WITH MEDICATION, Other Cardiovascular Problems/Disorders - HIGH CHOLESTEROL UNDER CONTROL WITH MEDICATION Respiratory History: Denies: Other Respiratory Problems/Disorders GI History: Reports: Other GI Disorders - UTI History: Denies: Hx Renal Disease, Other Problems/Disorders Musculoskeletal History: Denies: Other Musculoskeletal History Sensory History: Reports: Hx Cataracts - BILATERAL, Hx Contacts or Glasses Denies: Hx Glaucoma, Hx Legally Blind, Hx Deafness, Hx Hearing Aid Opthamlomology History: Reports: Hx Cataracts - BILATERAL, Hx Contacts or Glasses Denies: Hx Glaucoma, Hx Legally Blind EENT History: Denies: Hx Deafness Neurological History: Denies: Other Neuro Impairments/Disorders - Surgical History Surgery Procedure, Year, and Place: 1945 T&A. 2010 RIGHT CARPAL TUNNEL [facility]. & RT KNEE SCOPE [facility]. 07/2013 Bilateral CATARACT [facility] Hx Anesthesia Reactions: No - Immunization History Date of Influenza Vaccine: 06/2017 Infectious Disease History: No Infectious Disease History: Denies: Traveled Outside the [place] in Last 30 Days - Family History Known Family History: Positive: Hypertension - Social History Alcohol Use: Rare Alcohol Amount: 1-2 GLASS wine q 6 months Hx Substance Use: No Substance Use Type: Reports: None Hx Tobacco Use: No Smoking Status (MU): Never Smoked Tobacco Have You Smoked in the Last Year: No Review of Systems Positive: Fatigue Eyes: Negative ENT: Negative Cardiovascular: Negative Respiratory: Negative Gastrointestinal: Negative Genitourinary: Negative Musculoskeletal: Other Skin: Negative Neurological/Mental Status: Negative Psychological: Normal All Other Systems Reviewed And Are Negative: Yes Physical Exam - Summary Physical Exam Summary: No erythema, ecchymosis, deformity, swelling, mass noted to back. Mildly tender to palpation bilaterally lower back. Triage Information Reviewed: Yes Vital Signs On Initial Exam: Initial Vitals Temp Pulse Resp BP Pulse Ox 98.4 F 92 16 174/97 99 12/01/19 17:31 12/01/19 17:31 12/01/19 17:31 12/01/19 17:31 12/01/19 17:31 Vital Signs Reviewed: Yes Appearance: Positive: Well-Appearing Skin: Positive: Warm Head/Face: Positive: Normal Head/Face Inspection Eyes: Positive: Normal Neck: Positive: Supple Respiratory/Lung Sounds: Positive: Clear to Auscultation Cardiovascular: Positive: Normal Abdomen Description: Positive: Nontender Musculoskeletal: Positive: Normal Neurological: Positive: Normal Psychiatric: Positive: Normal AVPU Assessment: Alert - [place] Coma Scale Best Eye Response: 4 - Spontaneous Best Motor Response: 6 - Obeys Commands Best Verbal Response: 5 - Oriented Coma Scale Total: 15 Procedures - Sedation Patient Received Moderate/Deep Sedation with Procedure: No Diagnostics - Vital Signs Vital Signs Temp Pulse Resp BP Pulse Ox 12/01/19 17:31 98.4 F 92 16 174/97 99 - Laboratory Result Diagrams: 12/01/19 20:06 12/01/19 20:06 Lab Statement: Any lab studies that have been ordered have been reviewed, and results considered in the medical decision making process. Flu Symptom Course/Dx - Course Course Of Treatment: Patient complains of lower bilateral back pain, decreased energy, fatigue x 1 week. Evaluated for same symptoms one week ago, diagnosed with UTI and started on Keflex. has taken antibiotics with some improvement. Took last Keflex this morning. Symptoms seemed to worsen again today. Denies trauma, fever, cough, sore throat, CP, SOB, N/3/D, abdominal pain, change in BM. Medical history is HTN, A. fib, UTI. Vital signs within normal limits. Labs unremarkable. Urine negative. Flu Negative. - Diagnoses Provider Diagnoses: UTI (urinary tract infection) Discharge ED - Sign-Out/Discharge Documenting (check all that apply): Patient Departure - Discharge Plan Condition: Stable Disposition: HOME Referrals: David Mcgraw MD [Primary Care Provider] - Additional Instructions: Take Keflex as directed. Follow-up with primary care. - Billing Disposition and Condition Condition: STABLE Disposition: Home - Attestation Statements Provider Attestation: I was available for consult. This patient was seen by the [facility]. The patient was not presented to, seen by, or examined by me. Jean Hightower MD
[2019-12-01 20:05] LABS: Urine Appearance Clear; Urine Bilirubin Negative (Negative); Urine Blood 2+ (Negative); Urine Color Straw; Urine Glucose Negative (Negative); Urine Ketones Negative (Negative); Urine Nitrite Negative (Negative); Urine Protein Negative (Negative); Urine Specific Gravity 1.003 (1.010-1.030); Urine Urobilinogen Negative (Negative)
[2019-12-01 20:08] LABS: Urine Bacteria Absent (Absent); Urine Red Blood Cell Trace(0-2/hpf) (Absent); Urine White Blood Cell Trace(0-5/hpf) (Absent)
[2019-12-01 20:09] LABS: Influenza A Molecular Negative (Negative); Influenza B Molecular Negative (Negative)
[2019-12-01 20:26] LABS: ABS Lymphocytes 1.4 10^3/ul (1.0-4.8); ABS Monocytes 0.5 10^3/ul (0-0.8); ABS Neutrophils 3.4 10^3/ul (1.5-7.7); Eosinophil % 0.2 %; Hematocrit 39 % (35-47); Lymphocyte % 26.8 %; Mean Corpuscular HGB Conc 36 g/dL (31-36); Mean Corpuscular Hemoglobin 34 pg (27-31); Mean Corpuscular Volume 93 fL (80-97); Mean Platelet Volume 7.4 fL (7.4-10.4); Platelet Count 235 10^3/uL (150-450); Red Blood Count 4.15 10^6 /uL (3.70-4.87); Red Cell Distribution Width 13 % (10-15); White Blood Count 5.4 10^3/uL (3.5-10.8)
[2019-12-01 20:31] LABS: Albumin 4.5 g/dL (3.2-5.2); Albumin/Globulin Ratio 1.9 (1-3); C Reactive Protein 1.26 mg/L (<8.01); Calcium 9.5 mg/dL (8.6-10.3); EGFR African American 90.7 (>60); EGFR Non-African American 74.9 (>60); Globulin 2.4 g/dL (2-4); Potassium 3.4 mmol/L (3.5-5.0); Total Bilirubin 0.8 mg/dL (0.2-1.0); Total Protein 6.9 g/dL (6.4-8.9)
[2019-12-01 20:51] LABS: TSH (Thyroid Stimulating Horm) 2.66 mcIU/mL (0.34-5.60)
[2019-12-01] MEDS ORDERED: Amoxicillin/Clavulanate TAB* 875 MG PO ONE (21:24)
[2019-12-01] MEDS ORDERED: Cephalexin CAP* 500 MG PO ONE (21:28)
[2019-12-01 22:00] VITALS: BP 154/92
== END 2019-12-01 21:59 | disposition home or self-care (01) ==
LOC: ED 17:30
DX: N39.0 Urinary tract infection, site not specified (principal); E03.9 Hypothyroidism, unspecified; E78.00 Pure hypercholesterolemia, unspecified; I10 Essential (primary) hypertension; I48.91 Unspecified atrial fibrillation; Z79.01 Long term (current) use of anticoagulants; Z79.890 Hormone replacement therapy; Z79.899 Other long term (current) drug therapy; Z88.8 Allergy status to other drugs, medicaments and biological substances
CPT/HCPCS: 36415; 80053; 81003; 81015; 84443; 85025; 86140; 87086; 99283; A9270-GY

== ENCOUNTER 2019-12-04 04:35 | Emergency (ER) | payer MEDICARE ==
[2019-12-04 05:03] LABS: Urine Appearance Clear; Urine Bilirubin Negative (Negative); Urine Blood 2+ (Negative); Urine Color Yellow; Urine Glucose Negative (Negative); Urine Ketones Negative (Negative); Urine Nitrite Negative (Negative); Urine Protein Negative (Negative); Urine Specific Gravity 1.006 (1.010-1.030); Urine Urobilinogen Negative (Negative)
[2019-12-04 05:05] LABS: Urine Bacteria Absent (Absent); Urine Granular Casts Present (Absent); Urine Red Blood Cell 2+(6-10/hpf) (Absent); Urine White Blood Cell Trace(0-5/hpf) (Absent)
[2019-12-04] MEDS ORDERED: cefTRIAXone(*) 1 GM in NS 0.9% 50 ML* 50 ML IVPB ONE (07:10)
[2019-12-04] MEDS ORDERED: Acetaminophen TAB* 325 MG PO ONE (07:10)
--- NOTE | 2019-12-04 07:29 | ED ---
GI/ HPI - HPI Summary HPI Summary: This patient is a 79 year old F presenting to [facility] with a chief complaint of intermittent intense left flank pain since 12/03/19. Pt has been in the ED 3 times in the past 2 week. Pt had a UTI and was put on Keflex last week for 4-5 days, and then on 12/03/19 was put on macrobid. Yesterday pt was having trouble initiating stream. However, this morning pt was able to get some urine output. Pt has had back pain but also has chronic back pain. Patient reports fever, tenderness in stomach. Patient denies N/V/D, and hematuria. Pt has had 2-3 UTI this year. Pt has PMHx of HTN, and a fib. Pt has had no stomach surgeries, and does not smoke. Per triage, the patient rates the pain 6/10 in severity. Medications reviewed. Allergies noted. - History of Current Complaint Chief Complaint: EDBackInjuryPain Time Seen by Provider: 12/04/19 07:02 Stated Complaint: FLANK PAIN PER PT Hx Obtained From: Patient Onset/Duration: Started Days Ago Timing: Intermittent Severity: Moderate Current Severity: None Pain Intensity: 6 Location of Pain: Flank Pain Characteristics: Sharp Associated Signs and Symptoms: Positive: Back Pain, Fever, Abdominal Pain. Negative: Nausea, Vomiting, Diarrhea, Hematuria Aggravating Factor(s): Nothing Alleviating Factor(s): Nothing - Additional Pertinent History Primary Care Physician: [id number] - Allergy/Home Medications Allergies/Adverse Reactions: Allergies Allergy/AdvReac Type Severity Reaction Status Date / Time hydrochlorothiazide Allergy may cause Verified 12/04/19 05:09 K+, NA, and mag to drop Home Medications: Home Medications Apixaban* [Eliquis*] 5 mg PO BID 11/24/16 [History Confirmed 12/04/19] Atenolol TAB* [Tenormin TAB* 25 MG] 25 mg PO BID 11/25/19 [History Confirmed ] Levothyroxine TAB* [Synthroid TAB*] 100 mcg PO DAILY 11/25/19 [History Confirmed 12/04/19] Rosuvastatin (NF) [Crestor (NF)] 5 mg PO DAILY 11/25/19 [History Confirmed ] amLODIPine TAB* [Norvasc 5 mg TAB*] 10 mg PO DAILY 11/25/19 [History Confirmed 12/04/19] Lisinopril TAB* [Prinivil TAB*] 20 mg PO BID 12/01/19 [History Confirmed ] Nitrofurantoin Monohyd/M-Cryst [Macrobid 100 mg Capsule] 100 mg PO BID 12/04/19 [History Confirmed 12/04/19] Sulfamethox/Trimethoprim DS* [Bactrim DS 800/160 TAB*] 1 tab PO BID 14 Days #28 tab 12/04/19 [Rx] PMH/Surg Hx/FS Hx/Imm Hx Endocrine/Hematology History: Reports: Hx Thyroid Disease - HYPOTHYROIDISM Denies: Hx Diabetes, Hx Sickle Cell Disease Cardiovascular History: Reports: Hx Atrial Fibrillation, Hx Hypertension - WELL CONTROLLED WITH MEDICATION, Other Cardiovascular Problems/Disorders - HIGH CHOLESTEROL UNDER CONTROL WITH MEDICATION Respiratory History: Denies: Other Respiratory Problems/Disorders GI History: Reports: Other GI Disorders - UTI History: Denies: Hx Renal Disease, Other Problems/Disorders Musculoskeletal History: Denies: Other Musculoskeletal History Sensory History: Reports: Hx Cataracts - BILATERAL, Hx Contacts or Glasses Denies: Hx Glaucoma, Hx Legally Blind, Hx Deafness, Hx Hearing Aid Opthamlomology History: Reports: Hx Cataracts - BILATERAL, Hx Contacts or Glasses Denies: Hx Glaucoma, Hx Legally Blind Neurological History: Denies: Other Neuro Impairments/Disorders - Surgical History Surgery Procedure, Year, and Place: 1945 T&A. 2010 RIGHT CARPAL TUNNEL [facility]. & RT KNEE SCOPE [facility]. 07/2013 Bilateral CATARACT [facility] Hx Anesthesia Reactions: No - Immunization History Date of Influenza Vaccine: 06/2017 Immunizations Up to Date: Yes Infectious Disease History: No Infectious Disease History: Denies: Traveled Outside the [place] in Last 30 Days - Family History Known Family History: Positive: Hypertension - Social History Alcohol Use: Rare Alcohol Amount: 1-2 GLASS wine q 6 months Hx Substance Use: No Substance Use Type: Reports: None Hx Tobacco Use: No Smoking Status (MU): Never Smoked Tobacco Have You Smoked in the Last Year: No Review of Systems Positive: Fever Positive: Abdominal Pain, Other - L flank Pain. Negative: Vomiting, Diarrhea, Nausea Positive: discharge, pain. Negative: hematuria Positive: Other - back pain All Other Systems Reviewed And Are Negative: Yes Physical Exam - Summary Physical Exam Summary: Constitutional: Well-developed, Well-nourished, Alert. Resting comfortably Skin: Warm, Dry HENT: Normocephalic; Atraumatic Eyes: Conjunctiva normal Neck: Musculoskeletal ROM normal neck. (-) JVD, (-) Stridor, (-) Tracheal deviation (-) spinal tenderness Cardio: Rhythm regular, rate normal, Heart sounds normal; Intact distal pulses; Radial pulses are 2+ and symmetric. (-) Murmur Pulmonary/Chest wall: Effort normal. (-) Respiratory distress, (-) Wheezes, (-) Rales Abd: Soft, (-) tenderness in flank or bowel, (-) Distension, (-) Guarding, (-) Rebound Musculoskeletal: (-) Edema Lymph: (-) Cervical adenopathy Neuro: Alert, Oriented x3 Psych: Mood and affect Normal Triage Information Reviewed: Yes Vital Signs On Initial Exam: Initial Vitals Temp Pulse Resp BP Pulse Ox 100.5 F 105 18 115/67 98 12/04/19 04:40 12/04/19 04:40 12/04/19 04:40 12/04/19 04:40 12/04/19 04:40 Vital Signs Reviewed: Yes Procedures - Sedation Patient Received Moderate/Deep Sedation with Procedure: No Diagnostics - Vital Signs Vital Signs Temp Pulse Resp BP Pulse Ox 12/04/19 07:01 103 92 12/04/19 06:42 100 94 12/04/19 06:41 95 116/66 96 12/04/19 04:40 100.5 F 105 18 115/67 98 - Laboratory Lab Results: Lab Results 12/04/19 Range/Units 04:50 Urine Color Yellow Urine Appearance Clear Urine pH 7.0 (5-9) Ur Specific [place] 1.006 L (1.010-1.030) Urine Protein Negative (Negative) Urine Ketones Negative (Negative) Urine Blood 2+ A (Negative) Urine Nitrate Negative (Negative) Urine Bilirubin Negative (Negative) Urine Urobilinogen Negative (Negative) Ur Leukocyte Esterase Trace A (Negative) Urine WBC (Auto) Trace(0-5/hpf) (Absent) Urine RBC (Auto) 2+(6-10/hpf) A (Absent) Urine Bacteria Absent (Absent) Hyaline Casts Present A (Absent) Granular Casts Present A (Absent) Urine Glucose Negative (Negative) Result Diagrams: 12/04/19 08:04 12/04/19 08:04 Lab Statement: Any lab studies that have been ordered have been reviewed, and results considered in the medical decision making process. - CT Abdomen/Pelvis CT CT Interpretation Completed By: Radiologist Summary of CT Findings: Abdomen/Pelvis CT reveals, per radiologist IMPRESSION: 1. No renal calculi or signs of hydronephrosis identified. 2. 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 3. Atelectasis versus pneumonia at the dependent-most lung bases which is new since the June 06, 2019 CT examination. Re-Evaluation - Re-Evaluation First Eval Re-Evaluation Time: 09:14 Comment: Discussed results and plan of further care. GIGU Course/Dx - Course Course Of Treatment: Patient is here with urinary frequency, dysuria, and onset of left flank pain. Patient is overall well-appearing and feeling better this morning that she did last night. Patient did have a low-grade fever here. Patient had a UA which showed evidence of UTI. Patient had blood work performed which showed an elevated CRP and WBC count. Patient had a CT scan to evaluate for kidney stone which is negative. Patient is given a dose of Rocephin. Patient was discharged on 2 weeks of Bactrim as her prior culture on 11/25/19 showed sensitivity to this. - Diagnoses Provider Diagnoses: Pyelonephritis Discharge ED - Sign-Out/Discharge Documenting (check all that apply): Patient Departure - Discharge - Discharge Plan Condition: Stable Disposition: HOME Prescriptions: Sulfamethox/Trimethoprim DS* [Bactrim DS 800/160 TAB*] 1 tab PO BID 14 Days #28 tab Patient Education Materials: Urinary Tract Infection in Women (ED) Referrals: David Mcgraw MD [Primary Care Provider] - 3 Days Additional Instructions: Stop taking Macrobid, start new antibiotic. Return to ED if you develop chills, fever, vomiting, or any other concerning symptoms. Follow up with primary care provider early next week. - Billing Disposition and Condition Condition: STABLE Disposition: Home - Attestation Statements Document Initiated by Scribe: Yes Documenting Scribe: Suze Gallegos Provider For Whom Scribe is Documenting (Include Credential): Jean Hightower MD Scribe Attestation: Suze Kuo , scribed for Jean Hightower MD on 12/04/19 at 1610. Scribe Documentation Reviewed: Yes Provider Attestation: The documentation as recorded by the scribe, Suze Gallegos accurately reflects the service I personally performed and the decisions made by me, Jean Hightower MD Status of Scribe Document: Viewed
[2019-12-04 08:25] LABS: ABS Basophils 0.1 10^3/ul (0-0.2); ABS Lymphocytes 0.3 10^3/ul (1.0-4.8); ABS Monocytes 0.6 10^3/ul (0-0.8); ABS Neutrophils 13.7 10^3/ul (1.5-7.7); Hematocrit 38 % (35-47); Hemoglobin 13.2 g/dL (12.0-16.0); Lymphocyte % 1.9 %; Mean Corpuscular HGB Conc 35 g/dL (31-36); Mean Corpuscular Hemoglobin 33 pg (27-31); Mean Corpuscular Volume 94 fL (80-97); Mean Platelet Volume 7.6 fL (7.4-10.4); Nucleated Red Blood Cells % 0.1; Platelet Count 235 10^3/uL (150-450); Red Blood Count 4.01 10^6 /uL (3.70-4.87); Red Cell Distribution Width 13 % (10-15); White Blood Count 14.7 10^3/uL (3.5-10.8)
[2019-12-04 09:01] LABS: Albumin 3.8 g/dL (3.2-5.2); Calcium 8.6 mg/dL (8.6-10.3); Potassium 3.1 mmol/L (3.5-5.0); Total Bilirubin 0.9 mg/dL (0.2-1.0)
[2019-12-04 09:07] LABS: Albumin/Globulin Ratio 1.7 (1-3); BUN/Creatinine Ratio 12.5 (8-20); C Reactive Protein 43.84 mg/L (<8.01); EGFR African American 84.2 (>60); EGFR Non-African American 69.6 (>60); Globulin 2.3 g/dL (2-4); Total Protein 6.1 g/dL (6.4-8.9)
[2019-12-04 09:36] VITALS: BP 127/68
== END 2019-12-04 09:35 | disposition home or self-care (01) ==
LOC: ED 04:35
DX: N12 Tubulo-interstitial nephritis, not specified as acute or chronic (principal); M54.9 Dorsalgia, unspecified; R50.9 Fever, unspecified; E03.9 Hypothyroidism, unspecified; R10.9 Unspecified abdominal pain; Z79.890 Hormone replacement therapy; Z79.899 Other long term (current) drug therapy; I10 Essential (primary) hypertension; I48.91 Unspecified atrial fibrillation; E78.00 Pure hypercholesterolemia, unspecified
CPT/HCPCS: 36415; 74176; 80053; 81003; 81015; 83605; 85025; 86140; 87077; 87086; 87186; 96365; 99283; A9270-GY; J0696

== ENCOUNTER 2019-12-06 07:54 | Emergency (ER) | payer MEDICARE ==
--- NOTE | 2019-12-06 09:07 | ED ---
GI/ HPI - HPI Summary HPI Summary: Patient is a 79 y/o F presenting to the ED for a chief complaint of diarrhea that began on 12/05/19. Patient is present with her [id number]. Currently, patient complains of generalized weakness and having 4 episodes of diarrhea. Patient denies fever, dysuria, nausea, or vomiting. Patient states she has been seen at [facility] 3 times for UTI symptoms. She was last seen on 12/04/19 and diagnosed with a UTI and kidney infection. At that time, she was prescribed Bactrim for 14 days BID and told to return if she had diarrhea. Previously, patient was also prescribed Keflex and Macrobid, which were discontinued because patient was told they were not suitable to treat her infection. She states she is drinking plenty of fluids. She denies taking probiotics. PMHx is significant for HTN, thyroid disease, and atrial fibrillation for which she takes Eliquis. Any significant PSHx is denied. Patients medication reviewed this visit. - History of Current Complaint Chief Complaint: EDNauseaVomitDiarrh Time Seen by Provider: 12/06/19 08:43 Stated Complaint: DIARRHEA PER PT Hx Obtained From: Patient Onset/Duration: Atraumatic, Still Present Timing: Lasting Hours Severity: Mild Current Severity: None Pain Intensity: 0 Associated Signs and Symptoms: Positive: Weakness - Generalized, Diarrhea. Negative: Nausea, Vomiting, Fever, Dysuria Additional Signs & Symptoms: Positive: Recent Antibiotics - Additional Pertinent History Primary Care Physician: [id number] - Allergy/Home Medications Allergies/Adverse Reactions: Allergies Allergy/AdvReac Type Severity Reaction Status Date / Time hydrochlorothiazide Allergy may cause Verified 12/06/19 07:56 K+, NA, and mag to drop Home Medications: Home Medications Apixaban* [Eliquis*] 5 mg PO BID 11/24/16 [History Confirmed 12/06/19] Atenolol TAB* [Tenormin TAB* 25 MG] 25 mg PO BID 11/25/19 [History Confirmed 11/25] Levothyroxine TAB* [Synthroid TAB*] 100 mcg PO DAILY 11/25/19 [History Confirmed 12/06/19] Rosuvastatin (NF) [Crestor (NF)] 5 mg PO DAILY 11/25/19 [History Confirmed 12/05] amLODIPine TAB* [Norvasc 5 mg TAB*] 10 mg PO DAILY 11/25/19 [History Confirmed 12/06/19] Lisinopril TAB* [Prinivil TAB*] 20 mg PO BID 12/01/19 [History Confirmed ] Nitrofurantoin Monohyd/M-Cryst [Macrobid 100 mg Capsule] 100 mg PO BID 12/04/19 [History Confirmed 12/06/19] Sulfamethox/Trimethoprim DS* [Bactrim DS 800/160 TAB*] 1 tab PO BID 14 Days #28 tab 12/04/19 [Rx Confirmed 12/06/19] Ciprofloxacin HCl [Cipro] 500 mg PO BID #14 tablet 12/06/19 [Rx] Docusate CAP* [Colace Cap*] 100 mg PO BID 12/06/19 [History Confirmed 12/06/19] PMH/Surg Hx/FS Hx/Imm Hx Previously Healthy: Yes Endocrine/Hematology History: Reports: Hx Anticoagulant Therapy - Eliquis, Hx Thyroid Disease - HYPOTHYROIDISM Denies: Hx Diabetes, Hx Sickle Cell Disease Cardiovascular History: Reports: Hx Atrial Fibrillation, Hx Hypertension - WELL CONTROLLED WITH MEDICATION, Other Cardiovascular Problems/Disorders - HIGH CHOLESTEROL UNDER CONTROL WITH MEDICATION Respiratory History: Denies: Other Respiratory Problems/Disorders GI History: Reports: Other GI Disorders - UTI History: Denies: Hx Renal Disease, Other Problems/Disorders Musculoskeletal History: Denies: Other Musculoskeletal History Sensory History: Reports: Hx Cataracts - BILATERAL, Hx Contacts or Glasses Denies: Hx Glaucoma, Hx Legally Blind, Hx Deafness, Hx Hearing Aid Opthamlomology History: Reports: Hx Cataracts - BILATERAL, Hx Contacts or Glasses Denies: Hx Glaucoma, Hx Legally Blind EENT History: Denies: Hx Deafness Neurological History: Denies: Other Neuro Impairments/Disorders - Surgical History Surgical History: Yes Surgery Procedure, Year, and Place: 1946 T&A. 2010 RIGHT CARPAL TUNNEL [facility]. & RT KNEE SCOPE [facility]. 07/2013 Bilateral CATARACT [facility] Hx Anesthesia Reactions: No - Immunization History Date of Influenza Vaccine: 06/2017 Infectious Disease History: No Infectious Disease History: Denies: Traveled Outside the [place] in Last 30 Days - Family History Known Family History: Positive: Hypertension - Social History Occupation: Retired Alcohol Use: Rare Alcohol Amount: 1-2 GLASS wine q 6 months Hx Substance Use: No Substance Use Type: Reports: None Hx Tobacco Use: No Smoking Status (MU): Never Smoked Tobacco Have You Smoked in the Last Year: No Review of Systems Negative: Fever Positive: Diarrhea. Negative: Vomiting, Nausea Negative: dysuria Positive: Weakness - Generalized All Other Systems Reviewed And Are Negative: Yes Physical Exam Triage Information Reviewed: Yes Vital Signs On Initial Exam: Initial Vitals Temp Pulse Resp BP Pulse Ox 98.6 F 89 16 157/95 98 12/06/19 07:56 12/06/19 07:56 12/06/19 07:56 12/06/19 07:56 12/06/19 07:56 Vital Signs Reviewed: Yes Procedures - Sedation Patient Received Moderate/Deep Sedation with Procedure: No Diagnostics - Vital Signs Vital Signs Temp Pulse Resp BP Pulse Ox 12/06/19 07:56 98.6 F 89 16 157/95 98 - Laboratory Result Diagrams: 12/06/19 09:25 12/06/19 09:25 Lab Statement: Any lab studies that have been ordered have been reviewed, and results considered in the medical decision making process. Discharge ED - Sign-Out/Discharge Documenting (check all that apply): Patient Departure - Discharge - Discharge Plan Condition: Stable Disposition: HOME Prescriptions: Ciprofloxacin HCl [Cipro] 500 mg PO BID #14 tablet Referrals: David Mcgraw MD [Primary Care Provider] - Additional Instructions: - Stay well hydrated. Drink plenty of non-alcoholic, non-caffinated beverages - gatorade, water, popsicles as well as regular foods are important - Eat and drink regular, healthy meals - STOP take your current antibiotics - START taking CIPRO 2 times a day for 7 days - it is VERY important you eat yogurt with active culture AND take a probitic daily (find in vitamin aisle) - Contact your doctor today to schedule a follow-up appointment - Contact your doctor or return with questions or concerns - Attestation Statements Document Initiated by Scribe: Yes Documenting Scribe: Machelle Guzman Provider For Whom Scribe is Documenting (Include Credential): Mamie Munguia MD Scribe Attestation: Machelle Kuo, scribed for Mamie Munguia MD on 12/06/19 at 1122. Status of Scribe Document: Ready
[2019-12-06] MEDS ORDERED: NS 0.9% 1000 ML** 1,000 ML IV ONE (09:20)
[2019-12-06 09:37] LABS: ABS Lymphocytes 0.4 10^3/ul (1.0-4.8); ABS Monocytes 0.4 10^3/ul (0-0.8); ABS Neutrophils 3.7 10^3/ul (1.5-7.7); Hematocrit 40 % (35-47); Hemoglobin 14.1 g/dL (12.0-16.0); Mean Corpuscular HGB Conc 35 g/dL (31-36); Mean Corpuscular Hemoglobin 33 pg (27-31); Mean Corpuscular Volume 94 fL (80-97); Mean Platelet Volume 7.5 fL (7.4-10.4); Nucleated Red Blood Cells % 0.1; Platelet Count 241 10^3/uL (150-450); Red Blood Count 4.26 10^6 /uL (3.70-4.87); Red Cell Distribution Width 14 % (10-15); White Blood Count 4.6 10^3/uL (3.5-10.8)
[2019-12-06 10:05] LABS: BUN/Creatinine Ratio 9.2 (8-20); Calcium 9.4 mg/dL (8.6-10.3); EGFR African American 66.6 (>60); Magnesium 2.1 mg/dL (1.9-2.7); Potassium 3.5 mmol/L (3.5-5.0)
[2019-12-06 11:08] VITALS: BP 146/82
== END 2019-12-06 11:38 | disposition home or self-care (01) ==
LOC: ED 07:54
DX: R19.7 Diarrhea, unspecified (principal); I48.91 Unspecified atrial fibrillation; R53.1 Weakness; I10 Essential (primary) hypertension; E78.00 Pure hypercholesterolemia, unspecified; E03.9 Hypothyroidism, unspecified; Z79.890 Hormone replacement therapy; Z79.01 Long term (current) use of anticoagulants
CPT/HCPCS: 36415; 80048; 83735; 85025; 96360; 99283

== ENCOUNTER 2020-12-14 06:40 | Inpatient (IN) ==
[~2020-12-14 06:40] MED LIST: Buffered Lidocaine 1% SYRIN 1 ml INTRADERM ONE; Lactated Ringers 1000 ml BAG 1,000 ML IV SCH
[2020-12-14] MEDS ORDERED: ROPIVACAINE 5 MG/ML 30 ML BTL (0.5%) ONE ×2 (07:00→07:42)
[2020-12-14] MEDS ORDERED: ceFAZolin 2 GM PREMIX 2 GM/50 ML BAG ONE (07:17)
[2020-12-14] MEDS ORDERED: fentaNYL 100 mcg/2 ml 50 MCG/ML VIAL ONE (07:41)
[2020-12-14] MEDS ORDERED: Midazolam 2 mg/2 ml VIAL 1 mg/ml 2 ml VIAL (2 mg) ONE (07:42)
[2020-12-14] MEDS ORDERED: Dexamethasone IV 4 MG/ML VIAL 1 ml VIAL ONE (07:43)
[2020-12-14] MEDS ORDERED: Ondansetron 4 mg VIAL 2 MG/ML 2 ml VIAL ONE (08:13)
[2020-12-14] MEDS ORDERED: Lidocaine 2% PF 5 ML VIAL ONE (08:13)
[2020-12-14] MEDS ORDERED: Propofol 10 MG/ML 20 ML BTL ONE ×3 (08:13→08:15)
[2020-12-14] MEDS ORDERED: Ropivacaine 5 MG/ML 20 ML VIAL 0.5% (100 MG) ONE (08:16)
[2020-12-14] MEDS ORDERED: fentaNYL 100 mcg/2 ml 50 MCG/ML VIAL IV PRN (08:34)
[2020-12-14] MEDS ORDERED: oxyCODONE/Acetamin 5/325 mg TAB PO PRN (08:34)
[2020-12-14] MEDS ORDERED: DiMENhydriNATE IV 50 mg/ml 1 ml VIAL IV PUSH PRN (08:34)
[2020-12-14] MEDS ORDERED: Ondansetron 4 mg VIAL 2 MG/ML 2 ml VIAL IV PRN ×2 (08:34→09:18)
[2020-12-14] MEDS ORDERED: Naloxone 0.4 mg VIAL 0.4 mg/ml 1 ml VIAL IV PRN (08:34)
[2020-12-14] MEDS ORDERED: Dexmedetomidine 200 mcg/2 ml 2 ml VIAL (200 mcg) ONE (08:38)
[2020-12-14] MEDS ORDERED: Phenylephrine IV 10 MG/ML 1 ml VIAL ONE (09:14)
[2020-12-14] MEDS ORDERED: diPHENhydraMINE IV 50 MG/ML 1 ml VIAL (BENADRYL) IV PRN (09:18)
[2020-12-14] MEDS ORDERED: Lactulose 30 ml UDC PO PRN (09:18)
[2020-12-14] MEDS ORDERED: diPHENhydraMINE 25 mg TAB PO PRN (09:18)
[2020-12-14] MEDS ORDERED: Ondansetron ODT 4 mg TAB 4 MG TAB PO PRN (09:18)
[2020-12-14] MEDS ORDERED: Magnesium Hydroxide LIQ 30 ML UDC PO PRN (09:18)
[2020-12-14] MEDS ORDERED: Morphine 2 MG/ML SYRINGE IV PRN (09:18)
[2020-12-14] MEDS: Lactated Ringers 1000 ml BAG 1,000 ML IV SCH (12:00)
[2020-12-14] MEDS ORDERED: oxyCODONE/Acetamin 5/325 mg TAB ONE (12:01)
[2020-12-14] MEDS: ceFAZolin 1 GM ADVAN 1 GM in NS 0.9% 50 ML 50 ML IVPB SCH (16:36)
[2020-12-14] MEDS: Benzocaine/Menthol LOZ MT PRN (17:27)
[2020-12-14] MEDS: Magnesium Hydroxide LIQ 30 ML UDC PO SCH (20:16)
[2020-12-15] MEDS: Lactated Ringers 1000 ml BAG 1,000 ML IV SCH (00:34)
[2020-12-15] MEDS: ceFAZolin 1 GM ADVAN 1 GM in NS 0.9% 50 ML 50 ML IVPB SCH ×2 (00:34→09:24)
[2020-12-15 04:43] LABS: Hematocrit 30 % (35-47); Hemoglobin 10.5 g/dL (12.0-16.0); Mean Platelet Volume 7.5 fL (7.4-10.4); Platelet Count 242 10^3/uL (150-450)
[2020-12-15 04:57] LABS: BUN/Creatinine Ratio 20.5 (8-20); Calcium 8.5 mg/dL (8.6-10.3); EGFR African American 80.4 (>60); EGFR Non-African American 66.5 (>60); Potassium 3.7 mmol/L (3.5-5.0)
[2020-12-15] MEDS: Benzocaine/Menthol LOZ MT PRN (06:29)
[2020-12-15] MEDS: Magnesium Hydroxide LIQ 30 ML UDC PO SCH ×2 (09:24→22:27)
[2020-12-15] MEDS: Vitamin THERAPEUTIC TAB PO SCH (09:24)
[2020-12-15] MEDS: Calcium Carb (TUMS) 500 mg CHEW TAB PO PRN (10:19)
[2020-12-16 05:15] LABS: Hematocrit 28 % (35-47); Hemoglobin 9.9 g/dL (12.0-16.0); Mean Platelet Volume 7.5 fL (7.4-10.4); Platelet Count 230 10^3/uL (150-450)
[2020-12-16] MEDS: Vitamin THERAPEUTIC TAB PO SCH (08:36)
[2020-12-16] MEDS: Magnesium Hydroxide LIQ 30 ML UDC PO SCH ×2 (08:36→19:51)
[2020-12-16] MEDS: Calcium Carb (TUMS) 500 mg CHEW TAB PO PRN (19:51)
[2020-12-17 08:02] LABS: Hematocrit 26 % (35-47); Mean Platelet Volume 7.5 fL (7.4-10.4); Platelet Count 223 10^3/uL (150-450)
[2020-12-17] MEDS: Vitamin THERAPEUTIC TAB PO SCH (08:24)
[2020-12-17] MEDS: Magnesium Hydroxide LIQ 30 ML UDC PO SCH ×2 (08:27→20:14)
[2020-12-18 05:02] LABS: Hematocrit 27 % (35-47); Hemoglobin 9.2 g/dL (12.0-16.0); Mean Platelet Volume 7.3 fL (7.4-10.4); Platelet Count 263 10^3/uL (150-450)
[2020-12-18] MEDS: Vitamin THERAPEUTIC TAB PO SCH (09:09)
[2020-12-18] MEDS: Magnesium Hydroxide LIQ 30 ML UDC PO SCH ×2 (09:09→21:58)
[2020-12-19 05:38] LABS: Hematocrit 26 % (35-47); Hemoglobin 9.2 g/dL (12.0-16.0); Mean Platelet Volume 6.7 fL (7.4-10.4); Platelet Count 314 10^3/uL (150-450)
[2020-12-19 08:21] VITALS: BP 116/59
[2020-12-19] MEDS: Vitamin THERAPEUTIC TAB PO SCH (08:47)
[2020-12-19] MEDS: Magnesium Hydroxide LIQ 30 ML UDC PO SCH (08:47)
== END 2020-12-19 11:15 | disposition swing bed (61) | DRG 470 ==
LOC: AA 06:40 → INTOOBSV 06:40 → SSU 12:36
PROVIDERS: ADMIT Orthopaedic Surgery Adult Reconstructive Orthopaedic Surgery; ATTEND Orthopaedic Surgery Adult Reconstructive Orthopaedic Surgery

== ENCOUNTER 2021-12-04 06:55 | Observation (INO) ==
[2021-12-04] MEDS ORDERED: ROPIVACAINE 5 MG/ML 30 ML BTL (0.5%) ONE ×2 (07:10→09:29)
[2021-12-04] MEDS ORDERED: Lidocaine 1% MPF 5 ML VIAL ONE (07:10)
[2021-12-04] MEDS ORDERED: ceFAZolin 2 GM PREMIX 2 GM/50 ML BAG ONE (07:15)
[2021-12-04] MEDS ORDERED: Midazolam 2 mg/2 ml VIAL 1 mg/ml 2 ml VIAL (2 mg) ONE (08:23)
[2021-12-04] MEDS ORDERED: Lidocaine 2% PF 5 ML VIAL ONE (09:09)
[2021-12-04] MEDS ORDERED: fentaNYL 250 mcg/5 ml 50 MCG/ML 5 ml VIAL (250 MCG) ONE (09:09)
[2021-12-04] MEDS ORDERED: Propofol 10 MG/ML 20 ML BTL ONE (09:09)
[2021-12-04] MEDS ORDERED: Acetaminophen IV 1 GM/100ML 100 ML IV PRN (09:18)
[2021-12-04] MEDS ORDERED: DiMENhydriNATE IV 50 mg/ml 1 ml VIAL IV PUSH PRN (09:18)
[2021-12-04] MEDS ORDERED: HYDROmorphone 1 MG/1 ML SYRINGE IV PRN (09:18)
[2021-12-04] MEDS ORDERED: Ondansetron 4 mg VIAL 2 MG/ML 2 ml VIAL IV PRN ×2 (09:18→11:09)
[2021-12-04] MEDS ORDERED: fentaNYL 100 mcg/2 ml 50 MCG/ML VIAL IV PRN (09:18)
[2021-12-04] MEDS ORDERED: Naloxone 0.4 mg VIAL 0.4 mg/ml 1 ml VIAL IV PRN (09:18)
[2021-12-04] MEDS ORDERED: diPHENhydraMINE IV 50 MG/ML 1 ml VIAL (BENADRYL) IV PRN ×2 (09:18→11:09)
[2021-12-04] MEDS ORDERED: Ondansetron 4 mg VIAL 2 MG/ML 2 ml VIAL ONE (09:39)
[2021-12-04] MEDS ORDERED: Dexamethasone IV 4 MG/ML VIAL 1 ml VIAL ONE (09:39)
[2021-12-04] MEDS ORDERED: HYDROmorphone 0.5 MG/0.5 ML SYRINGE ONE (09:52)
[2021-12-04] MEDS ORDERED: Glycopyrrolate IV 0.2 MG/ML 1 ML VIAL ONE (10:06)
[2021-12-04] MEDS ORDERED: Phenylephrine 40 mcg/mL 10mL (400mcg) SYRINGE ONE (10:37)
[2021-12-04] MEDS ORDERED: Acetaminophen IV 1 GM/100ML 100 ML IV ONE (11:05)
[2021-12-04] MEDS ORDERED: diPHENhydraMINE 25 mg TAB PO PRN (11:09)
[2021-12-04] MEDS ORDERED: Magnesium Hydroxide LIQ 30 ML UDC PO PRN (11:09)
[2021-12-04] MEDS ORDERED: Lactulose 30 ml UDC PO PRN (11:09)
[2021-12-04] MEDS ORDERED: Morphine 2 MG/ML SYRINGE IV PRN (11:09)
[2021-12-04] MEDS ORDERED: Ondansetron ODT 4 mg TAB 4 MG TAB PO PRN (11:09)
[2021-12-04] MEDS: Lactated Ringers 1000 ml BAG 1,000 ML IV SCH (13:43)
[2021-12-04] MEDS ORDERED: Senna TAB 8.6 mg TAB PO PRN (13:51)
[2021-12-04] MEDS: Acetaminophen IV 1 GM/100ML 100 ML IV PRN (16:21)
[2021-12-04] MEDS: ceFAZolin 1 GM ADVAN 1 GM in NS 0.9% 50 ML 50 ML IVPB SCH (18:03)
[2021-12-04] MEDS: Magnesium Hydroxide LIQ 30 ML UDC PO SCH (21:56)
[2021-12-05] MEDS: Lactated Ringers 1000 ml BAG 1,000 ML IV SCH (00:16)
[2021-12-05] MEDS: ceFAZolin 1 GM ADVAN 1 GM in NS 0.9% 50 ML 50 ML IVPB SCH ×2 (03:38→09:08)
[2021-12-05 06:08] LABS: Hematocrit 27 % (35-47); Hemoglobin 9.3 g/dL (12.0-16.0); Mean Platelet Volume 7.8 fL (7.4-10.4); Platelet Count 217 10^3/uL (150-450)
[2021-12-05] MEDS: Acetaminophen IV 1 GM/100ML 100 ML IV PRN (06:10)
[2021-12-05 06:57] LABS: Calcium 8.5 mg/dL (8.6-10.3); Magnesium 1.8 mg/dL (1.9-2.7); Potassium 3.9 mmol/L (3.5-5.0); eGFR CKD-EPI 49.5 (>60)
[2021-12-05] MEDS ORDERED: Magnesium Sulfate IV 1GM/100ML 1 GM/100 ML BAG IV ONE (08:32)
[2021-12-05] MEDS: Magnesium Hydroxide LIQ 30 ML UDC PO SCH ×2 (09:06→20:49)
[2021-12-05] MEDS: Vitamin THERAPEUTIC TAB PO SCH (09:07)
[2021-12-06 05:47] LABS: Hematocrit 25 % (35-47); Hemoglobin 8.8 g/dL (12.0-16.0); Mean Platelet Volume 7.9 fL (7.4-10.4); Platelet Count 187 10^3/uL (150-450)
[2021-12-06 06:04] LABS: Calcium 8.4 mg/dL (8.6-10.3); Potassium 3.6 mmol/L (3.5-5.0)
[2021-12-06] MEDS: Magnesium Hydroxide LIQ 30 ML UDC PO SCH (08:46)
[2021-12-06] MEDS: Vitamin THERAPEUTIC TAB PO SCH (08:46)
[2021-12-06 09:01] LABS: Magnesium 1.8 mg/dL (1.9-2.7)
[2021-12-06 11:21] VITALS: BP 104/66
== END 2021-12-06 18:00 | disposition home or self-care (01) ==
LOC: AA 06:55 → INTOOBSV 06:55 → SSU 13:25
PROVIDERS: ADMIT Orthopaedic Surgery Adult Reconstructive Orthopaedic Surgery; ATTEND Orthopaedic Surgery Adult Reconstructive Orthopaedic Surgery